=== PATIENT | female | born 1960 | race Caucasian/White ===

== ENCOUNTER 2020-05-16 09:39 | Outpatient (CLI) | payer BC, SELFPAY ==
--- NOTE | ~2020-05-16 | XR_ITS ---
EXAMINATION: XR lg joint inject/asp w image DATE: 05/16/2020 10:34 INDICATION: Left hip osteoarthritis. TECHNIQUE: A time-out was performed to verify the patient's name, date of , and procedure to b e performed. The procedure including the risks, benefits, and alternatives was discussed with the pat ient. Risks discussed included bleeding and infection. The patient understood the risks and agreed to proceed. The skin overlying the left hip joint was prepped and draped in usual sterile fashion. An esthetic was administered with 1% lidocaine subcutaneously. A 22 G needle was advanced under fluoros copic guidance into the joint. Injection of 1 mL of Omnipaque 240 confirmed intra-articular position of the needle. Subsequently, injectate consisting of 3 mL 1% lidocaine and 2 mL 10 mL/mL Kenalog wa s instilled. The needle was removed and the entry site was cleaned and dressed. There were no immed iate complications. Fluoroscopy exposure time was 0.1 minutes. The total number of images was 2. FINDINGS: Real-time fluoroscopy demonstrates the needle in the left hip joint. Patient's pain prior t o procedure:06/01. Patient's pain following the procedure: 06/29. IMPRESSION: 1. Fluoroscopy guided left hip joint injection of local anesthetic and steroid . Reviewed, dictated and finalized at location A. SHOOTER
== END 2020-05-16 09:40 | disposition home or self-care (01) ==
PROVIDERS: PCP Family Medicine; Visit Provider Orthopaedic Surgery
DX: M16.0 Bilateral primary osteoarthritis of hip (principal)
CPT/HCPCS: 20610; 77002; J3301; Q9966

== ENCOUNTER 2023-08-07 09:48 | Outpatient (CLI) | payer OTHER, SELFPAY ==
[2023-08-07 10:30] LABS: CRP < 0.5 mg/dL (<1.0); Uric Acid 7.4 mg/dL (2.5-7.5)
[2023-08-07 10:31] LABS: Rheumatoid Factor < 12.0 IU/ML (<12)
[2023-08-07 10:38] LABS: Erythrocyte Sedimentation Rate 15 mm/hr (0-20)
[2023-08-08 21:28] LABS: HLA B27 NEGATIVE (NEGATIVE)
== END 2023-08-07 09:49 | disposition home or self-care (01) ==
LOC: ANHLAB 09:55
PROVIDERS: PCP Family Medicine; Visit Provider Podiatrist Foot & Ankle Surgery
DX: M10.9 Gout, unspecified (principal); M06.9 Rheumatoid arthritis, unspecified; M32.9 Systemic lupus erythematosus, unspecified
CPT/HCPCS: 36415; 84550; 85652; 86038; 86140; 86430; 86812

== ENCOUNTER 2024-09-24 08:51 | Emergency (ER) | payer OTHER, SELFPAY ==
--- NOTE | ~2024-09-24 | CT_ITS ---
EXAMINATION: CT cervical spine wo con DATE: 09/24/2024 09:16 INDICATION: Status post fall. TECHNIQUE: Computed tomography (CT) of the cervical spine was performed without intravenous contrast. The dose-length product was 366 mGy-cm. Automated exposure control and iterative reconstruction tech [email or web address] were employed. COMPARISON: CT dated 04/03/2016 FINDINGS: There is straightening of cervical lordosis. Craniovertebral junction within normal limits. Odontoid process is normal. There is disc narrowing at C5-6, C6-7 and C7-T1. There is degenerative a nterolisthesis at C3-4, C4-5 and retrolisthesis at C5-6. Lung apices are normal. No evidence for perc hed facet. Spinous processes are normal. Odontoid process is normal. There is multilevel uncinate and facet hypertrophy. No significant paraspinal soft tissue abnormality. IMPRESSION: 1. No acute abnormality of the cervical spine. 2: Severe cervical spondylosis. Reviewed, dictated and finalized at location A.
--- NOTE | ~2024-09-24 | CT_ITS ---
EXAMINATION: CT BRAIN W/O DATE: 09/24/2024 09:16 INDICATION: Status post fall. Head trauma. TECHNIQUE: Computed tomography (CT) of the head was performed without intravenous contrast. The dose- length product was 605.33 mGy-cm. Automated exposure control and iterative reconstruction technique w ere employed. COMPARISON: No prior studies for comparison. FINDINGS: Normal brain parenchymal volume for age. Normal grigsby-white differentiation. No acute intrac ranial hemorrhage, infarction, mass or mass effect. No ventriculomegaly or midline shift. Midline sagittal images demonstrate a normal corpus callosum, c raniovertebral junction and sella turcica. Basilar cisterns are patent. Paranasal sinuses and mastoids are pneumatized. No depressed skull fractures. IMPRESSION: 1. No acute intracranial abnormality. Reviewed, dictated and finalized at location A.
[2024-09-24 08:59] VITALS: BP 140/68; PULSE 65; RESP 14; TEMP 36.4; O2SAT 100
--- OUTSIDE RECORDS SUMMARY | 2024-09-24 09:12 | XMS_ITS | CONTINUITY OF CARE DOCUMENT ---
Author Name dain gautam Address Unknown Organization [facility] Office Address [address] [place] [address] Phone [phone] Care Team Providers Care Custom Frame Assembler Name Role Phone Lj GALVAN, Jun Unavailable [phone] ADELAIDE LOONEY MD Unavailable [phone] ADELAIDE LOONEY MD Unavailable PROBLEMS Condition Status Date Provider Notes Family History of CVA or Stroke: active ? Abimael Calhoun MD Family History of Hypertension: active ? 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 active Jun Calhoun MD HTN essential active Jun Calhoun MD Abnormal EKG active Jun Calhoun MD Shortness of breath active Jun Calhoun MD ENCOUNTERS Date Type Provider Location Encounter Diag nosis - In-person encounter Office Visit Jun Calhoun MD [facility] Family History of CVA or Stroke:Family History of Hypertension:Family History of Hypertension:Preoperativ e cardiovascular examination for colovescical fistula repairHTN essentialAbnormal EKGShortness of breath VITAL SIGNS Date Observation Value Provider Body Mass Index (Ratio) 31.07 kg/m2 Soham Calhoun MD blood pressure, diastolic 72 mm[Hg] Da jorge luis Dick blood pressure, systolic 142 mm[Hg] Dac ia Dick oxygen saturation, oximetry 96 % Josefa Dick respiratory rate E&M 16 /min Josefa V oss pulse rate 66 /min Josefa Dick weight E&M 181 [lb_av] Josefa Dick height E&M 64 [in_i] Josefa Jennings ALLERGIES Allergy Name Onset Date Reaction Criticality Status PENICILLIN High Criticality active HISTORY OF MEDICATION USE Medication Status Instructions Dates Provider Indications Com ments CVS STOOL SOFTENER CAPSULE active take once daily Josefa Dick LISINOPRIL 5 MG ORAL TABLET active take once daily Josefa Dick SYNTHROID 100 MCG ORAL TABLET active take one daily Josefa Dick EC-NAPROSYN 500 MG ORAL TABLET DELAYED RELEASE active take one twice daily Josefa Dick AMBIEN 10 MG ORAL TABLET active take one at bedtime Josefajose manuel Jennings HYDROCODONE-ACETA MINOPHEN 5-325 MG ORAL TABLET active take 1 as needed for pain Josefa Jennings SOCIAL HISTORY Date Observation Value Provider number of grandchildren Jun Calhoun MD T cindy Calhoun MD social history reviewed E&M reviewed - no changes required Jun Calhoun MD FAMILY HISTORY Family Member Condition Mother Family History of Hy pertension: Father Family History of Hy pertension: Father Family History of CV A or Stroke: INSURANCE PROVIDERS Payer name Policy type / Coverage type [place] [employer] party ID [facility] [id number] ADVANCE DIRECTIVES Name Date DISCUSSED - NO DECISION MADE TREATMENT PLAN Date Name Performer Cardiology New Patient Jun cisneros MD Cardiology New Patient Jun cisneros MD Cardiology New Patient Jun cisneros MD Date Name STR - Adenosine HISTORY OF PROCEDURES Procedure Date Procedure Name Provider Procedure Notes S tatus Regadenoson, 4 units Jun Calhoun MD completed Cardiolite, 2 units Jun Calhoun MD completed SPECT Images Jun Calhoun MD complet ed Stress EKG Adam Laogs MD complete d EKG Jun Calhoun MD completed
--- OUTSIDE RECORDS SUMMARY | 2024-09-24 09:12 | XMS_ITS | Clinical Summary ---
Author Organization [facility] Address [address] [place] [address] Phone Care Team Providers Care Client Care Consultant Name Role Phone Ashley Morrison MD Primary Care Provider [phone] Allergies Active Allergy Reactions Criticality Noted Date Comments Atorvastatin Other (See Comments) Medium 02/24/2014 Leg cramps Penicillins Rash Low 08/20/2013 Medications levothyroxine 100 mcg Oral tablet Take 100 mcg by mouth daily cash person. Active zolpidem (AMBIEN) 10 mg tablet Take 10 mg by mouth nightly as needed for Insomnia. Active aspirin (ECOTRIN EC) 81 mg Tablet, Delayed Release (E.C.) Take 1 Tab by mouth daily. 01/21/2014 Active sertraline (ZOLOFT) 25 mg tablet Take 25 mg by mouth daily. Active torsemide (DEMADEX) 10 mg Tablet 10 mg. prn 12/15/2013 Active naproxen (NAPROSYN) 250 mg tablet Take 250 mg by mouth daily. Active Active Problems Problem Noted Date Diagnosed Date Statin intolerance 02/26/2014 History of transient ischemic attack (TIA) 01/20 Hypothyroidism, acquired 01/20/2014 Resolved Problems Problem Noted Date Diagnosed Date Resolved Date Insomnia 01/20/2014 03/19/2023 Immunizations Immunization Administration Dates Next Due INFLUENZA VACCINE QUADRIVALENT 3 YR UP PF IM 04/2013 INFLUENZA VACCINE QUADRIVALENT 6 MOS UP PF IM Pneumococcal conjugate, unspecified formulation 01/20/2013 Family History Medical History Relation Name Comments Thyroid Disease Brother Diabetes Father Heart Disease Father Hypertension Father Breast Cancer Neg Hx Colon Cancer Neg Hx Ovarian Cancer Neg Hx Relation Name Status Comments Brother Father Social History Tobacco Use Types Packs/Day Years Used Date Smoking Tobacco: Never Passive Smoke Exposure: Never Smokeless Tobacco: Never Tobacco Cessation:Counseling Given: Not Answered Alcohol Use Standard Drinks/Week Comments No 0 (1 standard drink = 0.6 oz pur e alcohol) Comments No Sex and Gender Information Value Date Recorded Sex Assigned at Not on file Legal Sex Female 2:00 PM CDT Gender Identity Not on file Sexual Orientation Not on file Occupation Industry Job Start Date Job End Date Not on file Not on file Not on file Not on file Last Filed Vital Signs Vital Sign Reading Time Taken Comments Blood Pressure 128/78 02/24/2014 2:42 PM [employer]ISH [employer] Pulse 62 02/24/2014 2:42 PM [employer] Temperature 36.7 C (98 F) 01/22/2014 5:13 AM CDT Respiratory Rate 16 01/22/2014 5:13 AM CDT Oxygen Saturation 98% 02/24/2014 2:42 PM [employer] Inhaled Oxygen Concentration - - Weight 78.9 kg (174 lb) 02/24/2014 2:42 PM [employer] Height 165.1 cm (5' 5) 02/24/2014 2:42 PM [employer] Body Mass Index 28.96 02/24/2014 2:42 PM [employer]ARNISH [employer] Plan of Treatment Health Maintenance Due Date Last Done Comments DTAP/TDAP/TD VACCINES (1 - Tdap) 01/29/1979 HPV/Cotest (21-29) 01/29/1981 CERVICAL CANCER SCREENING 01/29/1990 HPV/Cotest (30-65) 01/29/1990 PAP SMEAR 01/29/1990 BREAST CANCER SCREENING 2000 COLORECTAL SCREENING 01/29/2005 Colorectal Cancer Screening 01/29/2005 FIT-DNA Q 3 years 01/29/2005 FIT/FOBT Q 1 year 01/29/2005 Flex Sig/CT Colonography Q 5 years 01/29/2005 ZOSTER VACCINE (1 of 2) 01/29/2010 INFLUENZA VACCINE (#1) 2023 02/20/2018, 2013 RSV VACCINE (60+ or ) (1 - 1-dose 75+ series) 01/29/2035 Insurance [facility] BLUE ACCESS CHOICE Advance Directives For more information, please contact: [phone] * Full Code (Latest Code Status on File) Date Activated Date Inactivated Comments 01/20/2014 2:05 PM 01/22/2014 2:20 PM * Full Code Date Activated Date Inactivated Comments 01/20/2014 9:24 AM 01/20/2014 2:05 PM Care Teams Client Care Consultant Relationship Specialty Start Date End Date Ashley Morrison MD [address] [facility] [address] [place] [address] PCP - General 04/08/15
--- OUTSIDE RECORDS SUMMARY | 2024-09-24 09:12 | XMS_ITS | Data Portability ---
Author Organization [place] [facility], Main Office Address [address] [place] [address] Care Team Providers Care Blood Tester Fowl Name Role Phone VINOD GEORGE Primary Care Provider [phone] VINOD GEORGE Referring Provider DEEDEE DELA CRUZ Intelligence Clerk Unavailab le Assessment Encounter Date Assessment Date Assessment LastModified by Organization Details LastModified Time 11/15/2022 11/15/2022 Patient has mode rate primary osteoarthritis of the right knee joint. We talked about treatment options she wants to try a round of gel shots but we have to get these approved in the meantime we could try 1 more shot of cortisone today she will continue with diclofenac. We talked about oral prednisone she states she has a reaction to this it makes her feel ill and she would like to avoid that. Under sterile conditions at her request I injected the patient's right knee joint in the office with 4 cc 0.5% ropivacaine and 20 mg of Kenalog. Patient tolerated procedure well. I will see her back in 6 weeks, if necessary we will proceed with viscosupplementation injection right knee. She voiced understanding agrees above plan she will call for any further problems difficulties or questions. Not available 11/15/2022 09:15:22 12/27/2022 12/27/2022 Patient has mode rate primary osteoarthritis right knee joint. We talked about treatment options previously and again today as described. Under sterile conditions I injected the patient's right knee joint in the office with Euflexxa injection number 1. I will see her back next week for the 2nd injection right knee. She voiced understanding agrees above plan she will call for any further problems difficulties or questions. Not available 12/27/2022 15:57:12 01/03/2023 01/03/2023 Patient has low back pain with right sacroiliac pain. She want to try a shot of cortisone therefore under sterile conditions I injected the patient's right sacroiliac bursa in the office with 4 cc 0.5% ropivacaine and 20 mg of Kenalog. Patient tolerated the procedure well. If her symptoms worsen or change she is instructed to call if symptoms persist we could get an MRI scan we will see how she does with the shot. I will see her back in 1 week for Euflexxa injection number 3 right knee. Today under sterile conditions I injected the patient's right knee joint in the office with Euflexxa injection 2. To treat her moderately advanced primary osteoarthritis right knee. She voiced understanding and agrees above plan she will call for any further problems difficulties or questions. She was also prescribed meloxicam 15 mg daily she will stop the other anti-inflammatories see if this helps. Not available 01/03/2023 14:35:01 01/10/2023 01/10/2023 The patient has moderate primary osteoarthritis of the right knee joint she could have some meniscal pathology patient wanted to try a course of gel shots before we jump to an MRI scan. She is awaiting insurance changes in the near future. Under sterile conditions I injected the patient's right knee joint in the office with Euflexxa injection 3. The patient tolerated the procedure well. I will see her back in a month if her symptoms continue to be significant we will see if we can get an MRI scan approved. She voiced understanding agrees above plan she will call for any further problems difficulties or questions. Not available 01/10/2023 15:39:37 04/24/2023 04/24/2023 The patient has pain in the right sacroiliac region chronic in nature she has recurrence of her pain she would like another shot of cortisone therefore under sterile conditions I injected the patient's right sacroiliac bursa in the office today with 4 cc 0.5% bupivacaine and 20 mg of Kenalog. Patient tolerated procedure well. She will get a refill on her diclofenac to help with the pain hopefully this will calm down for her. She voiced understanding agrees above plan. This has worked well for her in the past. As far as the patient's right shoulder ago she has impingement with rotator cuff tendinitis I do not see any evidence of tearing today although she could have chronic impingement causing partial thickness tearing. We talked about this in detail today for now she would like to try a shot of cortisone she declined formal therapy. Under sterile conditions I injected the patient's right shoulder subacromial space in the office with 4 cc 0.5% bupivacaine and 20 mg of Kenalog. Patient tolerated the procedure well. She was given a refill of her diclofenac as well I will see her back in 6 weeks to see what impact treatment has had if her symptoms continue we will get an MRI scan is shoulder she voiced understanding agrees above plan she will call for any further problems difficulties or questions. Not available 04/24/2023 10:12:30 Plan of Treatment Reminders Order Date Submit Date Provider Last Modified By Organization Details Last Modified Time Details Appointments None recorded. Lab None recorded. Referral None recorded. Procedures injection/a spiration joint/bursa (PROC) 2023 024 [email or web address] In-Office Order, Internal Use Only DO Not Attach Compendium DO Not Attach Compendium, Do Not Delete/merge, [id number] 09:49:42 injection/a spiration joint/bursa (PROC) - in office procedure, administere d by provider 2023 024 In-Office Order, Internal Use Only DO Not Attach Compendium DO Not Attach Compendium, Do Not Delete/merge, [id number] 4 09:30:24 knee aspiration/ injection (PROC) 2022 023 [email or web address] In-Office Order, Internal Use Only DO Not Attach Compendium DO Not Attach Compendium, Do Not Delete/merge, [id number] 3 15:23:55 knee aspiration/ injection (PROC) 2022 023 [email or web address] In-Office Order, Internal Use Only DO Not Attach Compendium DO Not Attach Compendium, Do Not Delete/merge, [id number] 14:20:20 injection/a spiration joint/bursa (PROC) - in office procedure, administere d by provider 2022 023 [email or web address] In-Office Order, Internal Use Only DO Not Attach Compendium DO Not Attach Compendium, Do Not Delete/merge, [id number] 3 14:25:48 knee aspiration/ injection (PROC) 2022 023 [email or web address] In-Office Order, Internal Use Only DO Not Attach Compendium DO Not Attach Compendium, Do Not Delete/merge, [id number] 3 15:28:01 injection/a spiration joint/bursa (PROC) - in office procedure, administere d by provider 2022 023 [email or web address] In-Office Order, Internal Use Only DO Not Attach Compendium DO Not Attach Compendium, Do Not Delete/merge, 3 09:07:16 Surgeries None recorded. Imaging XR, shoulder 2023 024 [email or web address] [facility], [facility], [place], [address], 4 10:26:12 Medication Orders diclofenac sodium 75 mg tablet,fidel yed release 2023 024 [facility] [address], [place], [id number], 4 13:02:29 bupivacaine HCl 0.5 % (5 mg/mL) injection solution 2023 024 [place] [address] [facility], [address], [place], [id number], 4 13:02:29 Kenalog 10 mg/mL suspension for injection 2023 024 [place] [address] [facility], [address], [place], [id number], 4 13:02:29 Kenalog 10 mg/mL suspension for injection [address] [facility]01891, [address], [place], [id number], 4 09:32:48 bupivacaine HCl 0.5 % (5 mg/mL) injection solution [address] [facility]49274, [address], [id number], 4 09:32:48 Euflexxa 10 mg/mL (mw 2.4-3.6 million) intra-artic ular syringe [address]2510, [address] [place] [address], [address], 3 15:40:32 Euflexxa 10 mg/mL (mw 2.4-3.6 million) intra-artic ular syringe 2022 023 [place] [address] [facility], [address] [place], [address], 3 14:41:15 Kenalog 10 mg/mL suspension for injection [address]/[facility] #2510, [address] [place], [address], 3 14:41:15 ropivacaine (PF) 5 mg/mL (0.5 %) injection solution [address]2510, [address] [place], [address], 3 14:41:15 meloxicam 15 mg tablet [address] [facility]22226, [address], [place], [id number], 3 14:41:15 Euflexxa 10 mg/mL (mw 2.4-3.6 million) intra-artic ular syringe 2022 023 [email or web address] [facility]acy #2510, [address] [place], [address], 3 15:51:33 Kenalog 10 mg/mL suspension for injection [address] #2510, [address] [place], [address], 3 09:26:34 ropivacaine (PF) 5 mg/mL (0.5 %) injection solution [address]/[facility] #2510, [address] [place], [address], 3 09:26:34 Patient TargetsNo targets recorded. Patient Instructions Encounter Date Encounter Id Patient Instructions Last Modified By Organization Details Last Modified Time 11/15/2022 [id number] viscosupplementa tion treatment* [email or web address] Not available 12/04/2022 17:23:01 Reason for Referral None Reported. Results Created Date Observation Date Name Description Value Unit Range Abnormal Flag Note LastModifiedBy Organization Detail LastModifiedTime 04/24/19 24 XR, shoul margret No observ ation record ed. [email or web address] [facility] [address], [place], [address], 04/24/2023 10:08:26 Result Notes None recorded. 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 Active 2016 Not Available [facility] 3 07:43:50 Constipat ion 18244542 Completed 201602/04/2018 Not Available [facility] 3 07:43:50 Acute sinusitis 69528758 Completed Not Available [facility] 3 07:43:50 History of transient ischemic attack 698510025 Active 2016 Not Available [facility] 3 07:43:50 Gouty arthropat hy 461880497 Active 2020 Not Available [facility] 3 07:43:50 Persisten t insomnia 571729006 Active 2017 Not Available [facility] 3 07:43:50 Insomnia 469094549 Active Not Available [facility] 3 07:43:50 Chronic interstit ial cystitis 795820034 Active 2017 Not Available [facility] 3 07:43:51 Microscop ic hematuria 020179810 Active Not Available [facility] 3 07:43:51 Pain of joint of hand Active Not Available [facility] 3 07:43:51 Plantar fasciitis Active Not Available [facility] 3 07:43:51 Abdominal pain 17893733 Completed Not Available [facility] 3 07:43:51 Idiopathi c periphera l neuropath y 18943020 Active 2018 Not Available [facility] 3 07:43:51 Mixed anxiety and depressiv e disorder 735825350 Active 2017 Not Available [facility] 3 07:43:51 Overweigh t 142794333 Active Not Available [facility] 3 07:43:51 Ventricul ar tachycard ia 68810107 Active Not Available [facility] 3 07:43:51 Transient cerebral ischemia 712133052 Completed Not Available [facility] 3 07:43:51 Edema 109912025 Active Not Available [facility] 3 07:43:51 Right sided abdominal pain 081789397 Completed 201602/03/2018 Not Available [facility] 3 07:43:51 Lymphaden opathy 09393158 Completed Not Available [facility] 3 07:43:51 Osteopeni a 787569278 Active 2018 Not Available [facility] 3 07:43:51 Pain in finger of left hand 98365146048 9105 Active 2022 Not Available [facility] 3 07:43:51 Pain of left hand 96585845172 9103 Active 2022 Not Available [facility] 3 07:43:52 Vaginal dryness 34765903 Completed 201602/03/2018 Not Available [facility] 3 07:43:52 Blood in urine 81078940 Completed Not Available [facility] 3 07:43:52 Graves' disease 614750805 Active Not Available [facility] 3 07:43:52 Depressiv e disorder 35939927 Active Not Available [facility] 3 07:43:52 Polyarthr opathy 90272772 Active 2018 Not Available [facility] 3 07:43:52 Seasonal allergic rhinitis 193667363 Active 2020 Not Available [facility] 3 07:43:52 Sinusitis 33208458 Completed Not Available [facility] 3 07:43:52 Hypertens cha disorder 33837402 Active 2017 Not Available [facility] 3 07:43:52 Osteoarth ritis 368112642 Active Not Available [facility] 3 07:43:52 Diverticu lar disease 408731876 Active Not Available [facility] 3 07:43:53 Hypothyro idism 97510713 Active Not Available [facility] 3 07:43:53 Ventral incisiona l hernia 134898957 Active 2018 Not Available [facility] 3 07:43:53 Obesity 497500389 Active 2017 Not Available [facility] 3 07:43:53 Acute urinary tract infection 931890135 Completed Not Available [facility] 3 07:43:53 Hypokalem ia 28804312 Active Not Available [facility] 3 07:43:53 Unintenti onal weight gain 35147766356 4104 Completed Not Available [facility] 3 07:43:53 Dermatoph ytosis 00859019 Active Not Available [facility] 3 07:43:53 Anxiety 16710817 Active Not Available [facility] 3 07:43:53 Pain of hip region 46456447 Active Not Available [facility] 3 07:43:53 Cough 44807285 Completed Not Available [facility] 3 07:43:54 Upper respirato ry infection 19476984 Completed Not Available [facility] 3 07:43:54 Vitamin B12 deficienc y (non anemic) 23712342 Active 2017 Not Available [facility] 3 07:43:54 Urinary tract infectiou s disease 66400543 Completed Not Available [facility] 3 07:43:54 Obstructi ve sleep apnea syndrome 16654039 Active 2017 Not Available [facility] 3 07:43:54 Chronic idiopathi c constipat ion 88162840 Active 2016 Not Available [facility] 3 07:43:54 Conjuncti vitis 2364403 Completed Not Available [facility] 3 07:43:54 Pain of left knee joint 22810934158 4107 Active 2022 OENIL Quiroga, [place] [facility] 3 13:52:48 Tear of lateral meniscus of knee 548152991 Active 2022 Azam Flores MD [address] [place] [address], [address] , [place] [facility] 3 14:11:30 Pain of right knee joint 01559685619 4100 Active 2022 MAIRA ValentinA null, [place] [facility] 3 09:43:45 Pain in right sacroilia c joint 60122619452 069898 Active 2022 Cheryl Lange CNA null, [place] [facility] 3 10:04:39 Lumbar spondylos is 755803360 Active 2022 SABIHA Felix [address], [place], [address] , [facility] [employer] [facility] 3 10:31:55 Osteoarth ritis of right knee joint 66906377493 9100 Active 2022 SABIHA Felix [address], [place], [address] , [facility] [employer] [facility] [employer] [facility] 3 10:32:07 Chondroca lcinosis of joint of right knee 67264227017 58173 Active 2022 SABIHA Felix [address], [place], [address] , [facility] [employer] [facility] [employer] [facility] 3 10:32:16 Derangeme nt of right knee 07116633622 485302 Active 2022 SABIHA Felix [address], [place], [address] , [facility] [employer] [facility] [employer] [facility] 3 15:39:48 Pain of right shoulder joint 80624783850 199627 Active 2023 Marilynn Silva RMA null, [facility] 4 09:26:57 Sciatica 87887399 Active 2023 Abby Olivera, ETIENNE null, [facility] 4 09:42:48 Tendiniti s of right rotator cuff 15125920043 678697 Active 2023 SABIHA Felix [address], [place], [address] , [facility] [employer] [facility] 4 10:12:51 Impingeme nt syndrome of right shoulder region 41426850541 9102 Active 2023 SABIHA Felix [address], [place], [address] , [facility] [employer] [facility] 4 10:13:01 Problem Notes None recorded. Procedures Surgical History Date Name Laterality Status Provider Name and Address Organization Details Recorded Time 08/29/19 23 Ortho - Cortisone Injection completed Azam Flores MD [address], [place], [address], [facility] [employer] [facility] 08/28/2022 14:09:27 Gallbladder Surgery completed Not Available [facility] 06/20/2022 07:41:21 [facility]sterectomy completed [facility] Available [facility] 07:41:21 section completed Not Available [facility] 06/20/2022 07:41:21 Imaging Results None recorded. Procedure Notes None recorded. Medical Equipment None Reported. Allergies Allergen ID Allergen Name Allergen Category Reaction Reaction Severity Criticality Documentation Date Start Date Code Code System Note Provider Name and Address Organization Details Recorded Time Product containin g penicilli n (product) medicatio n rash Not available Not available 06/20/2022 [address]79 [address] [facility] 3 07:47:06 56299 Flagyl medicatio n hives Not available Not available 06/20/20222013 65[address] [facility] 3 07:47:07 Medications Name Sig Start Date Stop Date Status Note LastModified by Organization Details LastModified Time cetirizin e 5 mg-pseudo ephedrine ER 120 mg tablet,ex tended release,1 2hr Take 1 tablet every 12 hours by oral route as needed for 7 days. 08/16 completed Not Available Not Available Not Available cyclobenz aprine 10 mg tablet TK 1 T PO Q 12 H FOR 15 DAYS PRN active Not Available Not Available No t Available promethaz ine-DM 6.25 mg-15 mg/5 mL oral syrup TAKE 2.5 ML BY MOUTH EVERY 4 HOURS NEEDED FOR COUGH active Not Available Not Available No t Available prednison e 10 mg tablet active Not Available Not Available Not Available doxycycli ne hyclate 100 mg capsule active Not Available Not Available Not Available naproxen 375 mg tablet 09/08 completed Not Available Not Available Not Available tizanidin e 2 mg tablet Take 1 tablet every 12 hours by oral route as needed for 15 days. active Not Available Not Available No t Available clindamyc in HCl 300 mg capsule TAKE 2 CAPSULES BY MOUTH 1 HOUR BEFORE DENTAL APPOINTM ENT active Not Available Not Available No t Available Normal Saline Flush 0.9 % injection syringe 06/19 completed Not Available Not Available Not Available trazodone 50 mg tablet Take 1 tablet every day by oral route at bedtime for 90 days. active Not Available Not Available No t Available atorvasta tin 10 mg tablet TK 1 T PO QD active stopped taking Not Available Not Available Not Available azithromy ana 250 mg tablet TAKE 4 TABLETS BY MOUTH A SINGLE DOSE active Not Available Not Available No t Available alprazola m 1 mg tablet TK 1 T PO QD 02/04 completed Not Available Not Available Not Available Lidocaine Viscous 2 % mucosal solution MIX WITH EQUAL PARTS OF BENADRYL AND MAALOX AND USE 15ML EVERY 6 HOURS NEEDED active Not Available Not Available No t Available fluconazo le 150 mg tablet TAKE 1 TABLET PO DAILY 01/26 completed Not Available Not Available Not Available benzonata te 200 mg capsule Take 1 capsule 3 times a day by oral route as needed for 10 days. 08/05 completed Not Available Not Available Not Available hydrocodo ne 5 mg-acetam inophen 325 mg tablet TAKE 1 TABLET BY MOUTH TWICE DAILY NEEDED FOR PAIN active Not Available Not Available No t Available Avelox 400 mg tablet active Not Available Not Available Not Available meloxicam 15 mg tablet TAKE 1 TABLET BY MOUTH EVERY DAY active Not Available Not Available No t Available phenazopy ridine 200 mg tablet Take 1 tablet every 8 hours by oral route as needed for 2 days. active Not Available Not Available No t Available cefepime 2 gram solution for injection 02/04 completed Not Available Not Available Not Available ondansetr on HCl 4 mg tablet active Not Available Not Available No t Available bupivacai ne HCl 0.5 % (5 mg/mL) injection solution in office procedur e, administ ered by provider 2023 active Not Available Not Available Not Avai lable prednison e 20 mg tablet TAKE 2 TABLETS BY MOUTH EVERY DAY FOR 5 DAYS active Not Available Not Available No t Available Synthroid 100 mcg tablet TAKE 1 TABLET DAILY EVERY OTHER DAY 30 MINS BEFORE BREAKFAS T. ALTERNAT E WITH THE 112 MCG 06/19 completed Not Available Not Available Not Available Elmiron 100 mg capsule Take 1 capsule 3 times a day by oral route as directed for 30 days. active Not Available Not Available No t Available naproxen 250 mg tablet TAKE 1 TABLET BY MOUTH TWICE DAILY WITH FOOD active Not Available Not Available No t Available phentermi ne 15 mg capsule TAKE 1 CAPSULE BY MOUTH EVERY DAY BEFORE MEALS active Not Available Not Available No t Available torsemide 10 mg tablet TAKE 1 TABLET DAILY active Not Available Not Available No t Available metronida zole 500 mg tablet TK 1 T PO TID 06/19 completed Not Available Not Available Not Available lidocaine HCl 2 % mucosal jelly Take 200 mg by mucous route. 09/02 completed Not Available Not Available Not Available phentermi ne 37.5 mg tablet TAKE 1 TAB BY MOUTH 30 MINUTES BEFORE BREAKFAS T. active Not Available Not Available No t Available prochlorp erazine maleate 10 mg tablet TAKE 1 TABLET BY MOUTH TWICE A DAY NEEDED FOR NAUSEA/V OMITING active Not Available Not Available No t Available allopurin ol 100 mg tablet Take 1 tablet every day by oral route as directed for 90 days. active Not Available Not Available No t Available ciproflox acin 500 mg tablet Take 1 tablet every 12 hours by oral route for 7 days. 02/04 completed Not Available Not Available Not Available sulfameth oxazole 800 mg-trimet hoprim 160 mg tablet TAKE 1 TABLET BY MOUTH EVERY 12 HOURS 03/07 completed Not Available Not Available Not Available aspirin 81 mg tablet,de layed release Take 1 tablet every day by oral route for 90 days. 05/09 completed Not Available Not Available Not Available tramadol 50 mg tablet TK 1 TO 2 TS PO Q 6 H PRN 06/19 completed Not Available Not Available Not Available phentermi ne 30 mg capsule TAKE 1 CAPSULE BY MOUTH EVERY DAY BEFORE MEALS active Not Available Not Available No t Available ketorolac 30 mg/mL (1 mL) injection solution Inject 1 mL every day by intramus cular route as needed for 1 day. 06/20 completed Not Available Not Available Not Available ondansetr on 8 mg disintegr ating tablet 09/02 completed Not Available Not Available Not Available prednison e 10 mg tablets in a dose pack Take 1 tab by mouth, 3 times a day for 3 daysTake 1 tab by mouth 2 times a day for 2 daysTake 1 tab by mouth once a day for 1 day 06/19 completed Not Available Not Available Not Available levothyro xine 88 mcg tablet Take 1 tablet every day by oral route for 90 days. 05/20 completed Not Available Not Available Not Available alprazola m 0.25 mg tablet Take 1 tablet every 12 hours by oral route as needed for 10 days. active Use as needed for the procedur e. Not Available Not Available Not Available potassium chloride ER 20 mEq tablet,ex tended release(p art/cryst ) Take 1 tablet every day by oral route for 30 days. active Not Available Not Available No t Available amitripty line 25 mg tablet active Not Available Not Available No t Available DOK 100 mg capsule TK ONE C PO BID UTD FOR 90 DAYS 05/09 completed Not Available Not Available Not Available Kenalog 10 mg/mL suspensio n for injection in office procedur e, administ ered by provider 2023 active [facility]: [phone] 08-09 Not Available Not Available Not Available amitripty line 10 mg tablet TAKE 1 TABLET NIGHTLY WITH AMBIEN active Not Available Not Available No t Available phenazopy ridine 100 mg tablet TK 1 T PO TID FOR 3 DAYS PRN 06/19 completed Not Available Not Available Not Available benzonata te 100 mg capsule TK 1 C PO BID PRN 11/22 completed Not Available Not Available Not Available cyanocoba dario (vit B-12) 1,000 mcg/mL injection solution Inject 1 mL every month by intramus cular route. 09/02 completed Not Available Not Available Not Available trazodone 150 mg tablet TAKE 1 TABLET BY MOUTH EVERYDAY AT BEDTIME 08/16 completed Not Available Not Available Not Available oseltamiv ir 75 mg capsule TAKE 1 CAPSULE BY MOUTH TWICE A DAY FOR 5 DAYS active Not Available Not Available No t Available nitrofura ntoin macrocrys ivory 100 mg capsule Take 1 capsule every 6 hours by oral route with meals for 7 days. active Not Available Not Available No t Available triamcino lone acetonide 0.1 % topical ointment active Not Available Not Available Not Available clotrimaz ole-betam ethasone 1 %-0.05 % topical cream APPLY TO THE AFFECTED AND SURROUND ING AREAS OF SKIN BY TOPICAL ROUTE 2 TIMES PER DAY IN THE MORNING AND EVENING FOR 2 WEEKS active Not Available Not Available No t Available lisinopri l 10 mg tablet TAKE 1 TABLET (10 MG TOTAL) BY MOUTH EVERY MORNING. active Not Available Not Available No t Available gabapenti n 300 mg capsule Take 1 cap po every 8 hrs as directed . 03/07 completed Not Available Not Available Not Available sertralin e 25 mg tablet Take one tablet daily active Not Available Not Available No t Available diclofena c sodium 75 mg tablet,de layed release TAKE 1 TABLET BY MOUTH TWICE DAILY active Not Available Not Available No t Available hydrocodo ne 5 mg-acetam inophen 500 mg tablet TAKE 1 TABLET BY MOUTH EVERY 6 HOURS NEEDED active Not Available Not Available No t Available zolpidem 5 mg tablet TAKE 1 TABLET BY MOUTH EVERY OTHER DAY active Not Available Not Available No t Available mirtazapi ne 15 mg tablet 06/19 completed Not Available Not Available Not Available gabapenti n 100 mg capsule Take 2 capsules 3 times a day by oral route as directed for 90 days. 02/04 completed Not Available Not Available Not Available polyethyl omid glycol 3350 17 gram/dose oral powder Take 17 g every day by oral route as directed for 90 days. 03/07 completed Not Available Not Available Not Available levofloxa ana 750 mg tablet Take 1 tablet every day by oral route for 10 days. 02/04 completed Not Available Not Available Not Available zolpidem 10 mg tablet TAKE 1 TABLET BY MOUTH AT BEDTIME NEEDED active Not Available Not Available No t Available methylpre dnisolone 4 mg tablets in a dose pack Take 1 dose pk every day by oral route as directed for 6 days. active Not Available Not Available No t Available neomycin 500 mg tablet 06/19 completed Not Available Not Available Not Available hydrocodo ne 10 mg-chlorp heniramin e 8 mg/5 mL oral susp extend.re l 12hr TAKE 5 ML BY MOUTH EVERY 12 HOURS NEEDED FOR 7 DAYS. active Not Available Not Available No t Available cefdinir 300 mg capsule 02/04 completed Not Available Not Available Not Available fluticaso ne propionat e 50 mcg/actua tion nasal spray,domingo pension SHAKE LIQUID AND USE 1 SPRAY IN EACH NOSTRIL DAILY active Not Available Not Available No t Available doxycycli ne hyclate 100 mg tablet Take 1 tablet twice a day by oral route for 10 days. active Not Available Not Available No t Available dicyclomi ne 10 mg capsule active Not Available Not Available Not Available phentermi ne 37.5 mg capsule active Not Available Not Available Not Available naproxen 500 mg tablet TAKE 1 TABLET EVERY 12 HOURS WITH FOOD NEEDED active Not Available Not Available No t Available metoclopr amide 10 mg tablet TK 1 T PO Q 6 H PRF NAUSEA 09/02 completed Not Available Not Available Not Available levothyro xine 112 mcg tablet TAKE 1 TABLET BY MOUTH EVERY MORNING BEFORE BREAKFAS T active Not Available Not Available No t Available tobramyci n 0.3 %-dexamet hasone 0.1 % eye drops,domingo pension INSTILL 2 DROPS INTO AFFECTED EYE(S) FOUR TIMES DAILY UNTIL CLEAR OR MAXIMUM OF 5 DAYS active Not Available Not Available No t Available oxycodone 5 mg tablet 06/19 completed Not Available Not Available Not Available enoxapari n 40 mg/0.4 mL subcutane ous syringe 06/19 completed Not Available Not Available Not Available escitalop chris 10 mg tablet TAKE 1 TABLET BY MOUTH EVERY DAY QAM. active Not Available Not Available No t Available Zyvox 600 mg/300 mL intraveno us piggyback 06/19 completed Not Available Not Available Not Available Vigamox 0.5 % eye drops INSTILL 1 DROP INTO AFFECTED EYE(S) BY OPHTHALM IC ROUTE 3 TIMES PER DAY FOR 7 DAYS active Not Available Not Available No t Available mirtazapi ne 7.5 mg tablet 06/19 completed Not Available Not Available Not Available Wal-itin D 10 mg-240 mg tablet,ex tended release TK 1 T PO D. 06/29 completed Not Available Not Available Not Available nitrofura ntoin monohydra te/macroc rystals 100 mg capsule TK 1 C PO Q 12 H FOR 7 DAYS 04/25 completed Not Available Not Available Not Available Zylet 0.3 %-0.5 % eye drops,domingo pension SHAKE LIQUID AND INSTILL 1 DROP IN RIGHT EYE FOUR TIMES DAILY FOR 7 DAYS active Not Available Not Available No t Available Lyrica 50 mg capsule Take 1 capsule every 12 hours by oral route as directed for 90 days. 02/04 completed Not Available Not Available Not Available diazepam 5 mg-7.5 mg-10 mg rectal kit please set both syringes at 5mg and will administ er in office 06/19 completed Not Available Not Available Not Available Euflexxa 10 mg/mL (mw 2.4-3.6 million) intra-art icular syringe Inject 2.5 mL by intra-ar ticular route for 35 days. 2022 active Not Available Not Available Not Arturotam rauschapril ana 11/22 completed zpack from [employer] Not Available Not Available Not Available lidocaine (PF) 10 mg/mL (1 %) injection solution In office injectio n administ ered by the provider 06/19 completed [facility]: [phone] Not Available Not Available Not Available BD Ultra-Fin e Short Pen Needle 31 gauge x 5/16 USE TO INJECT SAXENDA DAILY DIRECTED active Not Available Not Available No t Available heparin, porcine (PF) 10 unit/mL intraveno us syringe 06/19 completed Not Available Not Available Not Available levocetir izine 5 mg tablet Take 1 tablet every day by oral route as needed for 90 days. active Not Available Not Available No t Available oxycodone 10 mg tablet 06/19 completed Not Available Not Available Not Available diclofena c 1 % topical gel APPLY 2 GRAMS TOPICALL Y TO THE AFFECTED AREA FOUR TIMES DAILY active Not Available Not Available No t Available Suprep Bowel Prep Kit 17.5 gram-3.13 gram-1.6 gram oral solution active Not Available Not Available Not Available ropivacai ne (PF) 5 mg/mL (0.5 %) injection solution Take 20 mg by injectio n route. 2022 active [facility] [id number] Not Available Not Available Not Available Banophen 50 mg capsule TAKE 1 CAPSULE BY MOUTH EVERY 6 HOURS NEEDED FOR ITCHING. active Not Available Not Available No t Available calcium 600 mg (as carbonate )-vitamin D3 20 mcg (800 unit) tablet Take 1 tablet twice a day by oral route for 90 days. 05/09 completed Not Available Not Available Not Available Linzess 145 mcg capsule TAKE ONE CAPSULE BY MOUTH DAILY , 30 MINUTES BEFORE FIRST MEAL 09/02 completed Not Available Not Available Not Available Virtussin AC 10 mg-100 mg/5 mL oral liquid TK 10 ML PO Q 8 H FOR 7 DAYS 04/25 completed Not Available Not Available Not Available Saxenda 3 mg/0.5 mL (18 mg/3 mL) subcutane ous pen injector active Not Available Not Available Not Available Spiriva Respimat 1.25 mcg/actua tion solution for inhalatio n Inhale 2 puffs every day by inhalati on route. 2015 active Dispense Qty: 1. Not Available Not Available Not Available Yuvafem 10 mcg vaginal tablet INSERT 1 TABLET VAGINALL Y 2 TIMES A WEEK as needed active Not Available Not Available No t Available Trulance 3 mg tablet TAKE 1 TABLET BY MOUTH EVERYDAY AT BEDTIME active Not Available Not Available No t Available Xofluza 20 mg tablet Take 2 tablets every day by oral route as directed for 1 day. 08/10 completed Not Available Not Available Not Available Wegovy 2.4 mg/0.75 mL subcutane ous pen injector active Not Available Not Available Not Available Wegovy 1.7 mg/0.75 mL subcutane ous pen injector active Not Available Not Available Not Available Wegovy 1 mg/0.5 mL subcutane ous pen injector INJECT 0.5ML (1MG) SUBCUTAN EOUSLY EVERY 7 DAYS active Not Available Not Available No t Available Wegovy 0.5 mg/0.5 mL subcutane ous pen injector INJECT 0.5 ML (0.5 MG TOTAL) UNDER THE SKIN EVERY 7 DAYS active Not Available Not Available No t Available Vitals Date Recorded Body height Body mass index (BMI) Body weight Provider Name and Address Organization Details Last Updated DateTime 04/24/2023 162.56 cm 34.2 kg/m2 30614.88 g [employer]IL [employer] 04/24/2023 09:24:55 Date Recorded Body height Body mass index (BMI) Body weight Provider Name and Address Organization Details Last Updated DateTime 11/15/2022 162.56 cm 30.9 kg/m2 56094.63 g Rose Arredondo [employer] 11/15/2022 08:55:45 Date Recorded Body height Body mass index (BMI) Body weight Provider Name and Address Organization Details Last Updated DateTime 12/27/2022 162.56 cm 32.6 kg/m2 46474.55 g Cheryl Lange CNA [employer] 12/27/2022 15:26:29 Date Recorded Body height Body mass index (BMI) Body weight Provider Name and Address Organization Details Last Updated DateTime 01/03/2023 162.56 cm 32.1 kg/m2 32499.77 LEANDER Quintana [employer] 01/03/2023 14:19:01 Date Recorded Body height Body mass index (BMI) Body weight Provider Name and Address Organization Details Last Updated DateTime 01/10/2023 162.56 cm 31.9 kg/m2 32383.18 LEANDER Quintana [employer] 01/10/2023 15:22:07 Social History Question Answer Notes LastModified by [employer] Details LastModified Time Tobacco Smoking Status Never Smoker Not Available [facility] 06/20/2022 07:41:19 In The 14 Days Before Symptom Onset, Have You Had Close Contact With A Laboratory-confirm ed COVID-19 While That Case Was Ill? No [id number] Information not available 06/20/2022 In The 14 Days Before Symptom Onset, Have You Had Close Contact With A Person Who Is Under Investigation For COVID-19 While That Person Was Ill? No [id number] Information not available 06/20/2022 Sex: Unknown Functional Status Question Answer Note LastModified by [employer] Details LastModified Time What is your level of alcohol consumption? 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 Family History Relationship Description Onset Age of this Age Resolved Age Notes LastModified by Organization Details LastModified Time Unspecified Relation Diabetes mellitus [id number] Not available 06/20/2022 07:41:23 Unspecified Relation Heart disease [id number] Not available 06/20/2022 07:41:23 Brother Hypertensive disorder [id number] Not available 06/20/2022 07:41:23 Medical History Condition Response BLINDNESS N RHEUMATIC FEVER N KIDNEY STONES N BLADDER PROBLEMS N MRSA N OTHER # 1 N POLIO N LUNG DISEASE/DISORDER N COPD N RADIATION / CHEMOTHERAPY N Other # 2 N BLOOD DISEASES N SURGERY N EAR OR HEARING PROBLEMS N MUMPS N BOWEL PROBLEMS N FEMALE PROBLEMS / INFECTIONS N DEPRESSION (INCLUDING POST ) N STROKE/TIA N THYROID DISEASE N ULCERS N BENIGN PROSTATIC HYPERPLASIA N MEASLES N CERVICALGIA N TB SKIN TEST N MYOCARDIAL INFARCTION N OBESITY N PARAPELGIA N GERD/NAUSEA N ANEURYSM N URINARY/BLADDER/KIDNEY PROBLEMS N CORONARY ARTERY DISEASE (CAD) N MENIERE'S DISEASE N ADDICTION CONCERNS N ENDOMETRIOSIS N USE OF BLOOD THINNERS N SKIN PROBLEMS N EMPHYSEMA N GASTROINTESTINAL DISORDER N MUSCLE,JOINT OR BONE PROBLEMS N GASTROINTESTINAL BLEEDING N BLOOD CLOTS N ASTHMA N CATARACTS N ERECTILE DYSFUNCTION N GI PROBLEMS N CHF N Low Testosterone N NEUROPATHY N INFERTILITY N AIDS/HIV N FRACTURES N CHEMOTHERAPY / RADIATION N VISION/EYE PROBLEMS N LIVER DISEASE N MALE HYPOGONADISM N HYPERTENSION N TOURETTE'S N ANXIETY DISORDER N BLOOD TRANSFUSION N ANEMIA/BLOOD DISORDER N CHRONIC EAR INFECTIONS N BRONCHITIS N TUBERCULOSIS N GLAUCOMA N FOOT PROBLEM N DIVERTICULITIS N CHICKENPOX N SLEEP APNEA N ALLERGIES/HAYFEVER N INFECTIOUS DISEASE N HEART ARRHYTHMIA N PROSTATE N INSOMNIA N HIGH CHOLESTEROL / HYPERLIPIDEMIA N HYPERTHYROIDISM N EYE PROBLEMS N EATING DISORDER N EDEMA N CHRONIC PAIN SYNDROME N CAROTID BLOCKAGE N CONSTIPATION N BACK / NECK PROBLEMS N HAVE YOU BEEN HOSPITALIZED OR SEEN IN [facility] IN THE PAST YEAR ? N ATHEROSCLEROSIS N BREAST PROBLEMS N DIALYSIS N ECZEMA N FIBROMYALGIA N OSTEOPOROSIS N ARTHRITIS Y NO SIGNIFICANT PAST MEDICAL HISTORY N APPENDICITIS N DIABETES, TYPE N BAD TEETH N HEARTBURN / REFLUX N ADD/ADHD N AUTISM SPECTRUM DISORDER (ASD) N HEPATITIS / LIVER DISEASE N PULMONARY DISEASE N GOUT N SLEEP DISORDER N ALZHEIMER'S DISEASE N PAIN N HERPES N DEMENTIA N HEADACHES/MIGRAINES N SEIZURES/EPILEPSY N VASCULAR DISEASE N PACEMAKER N DIZZINESS N HEART DISEASE/HEART PROBLEMS N KIDNEY DISEASE N DEVELOPMENTAL OR BEHAVIORAL DISORDERS N MULTIPLE SCLEROSIS N SCARLET FEVER N MENTAL DISORDER/ILLNESS N CARDIAC ARRHYTHMIA N CANCER: SPECIFY N PNEUMONIA N ATRIAL FIBRILLATION N Gall Stones N PULMONARY EMBOLISM N AUTOIMMUNE DISEASE N Gynecological HistoryNo gynecological history recorded. Obstetrics History GPAL:G 0 P 0 0 0 0 Immunizations Vaccine Type Date Status Note Provider Nam e and Address Organization Details Recorded Time Influenza, split virus, trivalent, preservative [address] [facility] 06/20/2022 07:47:01 Influenza, split virus, trivalent, preservative [address] [facility] 06/20/2022 07:47:01 pneumococcal polysaccharide PPV23 [address] [facility] 06/20/2022 07:47:01 Tdap 3 completed Not Available [facility] 06/20/2022 07:47:02 Influenza, split virus, trivalent, PF 3 completed Not Available [facility] 06/20/2022 07:47:02 Past Encounters Encounter ID Performer Location Encounter Start Date Encounter Closed Date Diagnosis/Indication Diagnosis SNOMED-CT Code Diagnosis ICD10 Code Diagnosis Note [id number] Scott Browne MD [facility] [address] [place] [address] 08/16/2020 00:00:00 08/16/2020 09:46:02 [id number] Scott Browne MD [facility] [address] [facility] [place] [address] 09/09/2020 00:00:00 09/09/2020 11:33:17 [id number] Scott Browne MD [facility] [address] [place], [place] [address] [place] [address] 09/13/2020 00:00:00 09/13/2020 10:08:10 [id number] Scott Browne MD [facility] [address] [facility] [place] [address] 10/11/2020 00:00:00 10/11/2020 17:51:12 [id number] Scott Browne MD [facility] [address] [place] [address] 11/30/2020 00:00:00 11/30/2020 11:47:22 [id number] Scott Browne MD [facility] [address] [place] [address] 12/22/2020 00:00:00 12/22/2020 12:21:08 [id number] Scott Browne MD [facility] [address] [place] [address] 01/20/2021 00:00:00 01/20/2021 13:03:46 [id number] Azam Flores MD [facility] [address] [place] [address] 03/07/2021 00:00:00 03/07/2021 16:18:48 [id number] Azam Flores MD [facility] [address] [place] [address] 06/19/2022 00:00:00 06/19/2022 16:39:10 [id number] Azam Flores MD [facility] [address] [place] [address] 08/28/2022 13:46:22 08/28/2022 14:16:12 Pain of left knee joint [id number] 58229 M25.562 Tear of la teral meniscus of knee 157151064 S83.282A [id number] Azam Flores MD [facility] [address] [place] [address] 09/13/2022 09:39:33 09/13/2022 10:10:45 Tear of lateral meniscus of knee 717001917 S83.282A Pain of ri ght knee joint 7369027827 42505 M25.561 Pain of le ft knee joint 6857094888 57013 M25.562 Pain in ri ght sacroiliac joint 0760439035 3259272 M53.3 Lumbar spondylosis 44836 0009 M47.896 Osteoarthr itis of right knee joint 1903315656 30420 M17.11 Chondrocal cinosis of joint of right knee 5922343702 928784 M11.261 [id number] Azam Flores MD [facility] [address] [place] [address] 11/15/2022 08:52:33 11/15/2022 10:26:47 Pain of right knee joint 3291716866 98642 M25.561 Osteoarthr itis of right knee joint 0877206274 56380 M17.11 Tear of la teral meniscus of knee 573349200 S83.282A Pain of le ft knee joint 3777173956 78724 M25.562 Pain in ri ght sacroiliac joint 7729222636 3900426 M53.3 Lumbar spondylosis 07209 0009 M47.896 Chondrocal cinosis of joint of right knee 0199587877 841653 M11.082 [id number] Azam Flores MD [facility] [address] [place] [address] 12/27/2022 15:23:32 12/27/2022 15:57:24 Osteoarthritis of right knee joint 9781275235 60702 M17.11 Pain of ri ght knee joint 6069747743 43613 M25.163 [id number] Azam Flores MD [facility] [address] [place] [address] 01/03/2023 14:05:12 01/03/2023 15:02:51 Osteoarthritis of right knee joint 5205120712 65013 M17.11 Pain of ri ght knee joint 2936829657 99592 M25.561 Pain in ri ght sacroiliac joint 8765707466 3088153 M53.3 [id number] Azam Flores MD [facility] [address] [place] [address] 01/10/2023 15:18:48 01/10/2023 15:35:48 Osteoarthritis of right knee joint 0917588295 68862 M17.11 Pain of ri ght knee joint 4813043901 33579 M25.561 Derangemen t of right knee 0934935367 7633740 M23.91 [id number] Heron Wright MD [facility] [address] [place] [address] 04/24/2023 09:15:11 04/24/2023 10:26:12 Osteoarthritis of right knee joint 9888594664 25792 M17.11 Pain of ri ght knee joint 4546702663 09339 M25.561 Derangemen t of right knee 7311567271 3662725 M23.91 Pain of ri ght shoulder joint 8376382257 4482750 M25.511 Sciatica 52605934 M54.31 Pain in fi nger of left hand 3492701536 97636 M79.645 Pain in ri ght sacroiliac joint 4427249578 2262752 M53.3 Tendinitis of right rotator cuff 6622858673 3230682 M67.813 Impingemen t syndrome of right shoulder region 1509890835 52552 M75.41 Health Concerns Section Related Observation LastModified by Organization Detai ls LastModified Time None Recorded Concern Status LastModified by Organization Details LastModified Time None Recorded Advance Directives Directive None Recorded Payers Encounter Date Sequence Insurance Name Policy Number Policy Carlson Covered Member ID Carlson Member ID Guarantor Name 11/15/2022 1 [facility] Suhail Espinosa Jo Ann [id number] Cseia Cherry 12/27/2022 1 [facility] Suhail Jesús Jo Ann [id number] Cesia Cherry 01/03/2023 1 [facility] Suhail Espinosa Jo Ann [id number] Cesia Cherry 01/10/2023 1 [facility] Suhail Jesús Jo Ann [id number] Cesia Cherry 04/24/2023 1 [facility] [id number] Suhail Jo Ann [id number] Cesia Cherry Notes Date Note Type Note Provider Name and Address Organization Details Recorded Time 11/15/2022 text/html Patient returns complaining of right knee pain with some mild swelling. She has previous x-rays which show moderate primary osteoarthritis she also has some chondrocalcinosis of the menisci. She states that a shot of cortisone 2 months ago gave her excellent relief. She denies any specific trauma or injury recently or previously. She states that she stands on her feet all day at work this causes aching pain worse with activities and relieved by rest she has trouble squatting kneeling going up and down stairs. she reports crepitation and a fullness in the knee it feels tight with the extremes of motion. Despite taking diclofenac recently her symptoms continue. Patient comes in today with no loss of motion or other mechanical symptoms no erythema heat or other signs of infection. She would like to talk about further treatment options for her right knee pain. She was doing very well until a week or 2 ago now her pain is back to about a 5 on a scale 1-10. SABIHA Felix [address] [facility] [address], [place], [address], [facility] 11/15/2022 09:26:31 12/27/2022 text/html Patient returns for Euflexxa injection number 1 right knee. We have tried cortisone this did not give her good relief. Dr. Flores had recommended an MRI scan of the knee however she declined she does have moderate primary osteoarthritis noted in the right knee had no specific trauma or injury previously. She would like to try conservative measures before she considered an MRI scan or surgical intervention. She he would like to go through a course of gel shots. She is taking diclofenac daily as well. SABIHA Felix [address], [place], [address], [employer] [facility] [employer] 12/27/2022 15:58:49 01/03/2023 text/html patient returns for Euflexxa injection 2. Right knee. She has moderate primary osteoarthritis with chronic aching pain. She is trying to avoid total knee arthroplasty she does have significant osteoarthritis and chondrocalcinosis. She declined an MRI scan Dr. Flores has recommended a course of gel shots.Patient also having low back pain in the right sacroiliac region that radiates into the buttock little bit down the thigh. We talked about treatment options for this in detail previously as well she had a shot of cortisone here and made this gave her excellent relief when she had her right SI joint injected into the bursa. She would like to repeat this today she has had a flare up of her back pain denies any neurovascular deficits no bowel or bladder symptoms no acute trauma or injury. She has recurrent low back pain similar to last August. SABIHA Felix [address], [place], [address], [employer] [facility] [employer] 01/03/2023 14:35:16 01/10/2023 text/html Patient returns for Euflexxa injection number 3 right knee. States she is not getting much relief for the 1st 2 rounds of injections. She has moderate primary osteoarthritis, Dr. Flores had recommended an MRI scan of the knee however she declined she has had some issues with her insurance being switch back and forth she will have permanent good insurance in about a month. In the meantime she wanted to try a course of gel shots recommended by Dr. Flores. She comes in today for the 3rd and final 1. States she is still having significant pain particularly if she is on her feet all day has throbbing and aching that bothers her at night as well. SABIHA Felix [address], [place], [address], [employer] 01/10/2023 15:40:16 04/24/2023 text/html Patient returns complaining of recurrent low back pain the right sacroiliac region also new problem with her right shoulder. Right sacroiliac pain has been there chronically shot of cortisone worked well for her in the past she would like another 1 today. Denies any radicular pain down the leg no numbness or tingling no bowel or bladder symptoms. She states that if she stands for too long of a time this causes significant aching pain in the right sacroiliac region. She has been working more lately this has been bothering her she would like another shot of cortisone today. She also has been taking diclofenac but has run out she would like a refill on this we will get her this for her issues as well.Patient's other problem is a new problem with her right shoulder. Denies any trauma or injury states she has aching pain in the shoulder radiates into the upper arm many years ago she had a shot of cortisone for impingement this worked well for her. She states that if she tries to do anything heavy repetitive her reach up over head or behind her back this causes aching pain it also it is keeping her awake at night. She has trouble with trying to keep her shoulder calm despite conservative measures her symptoms continue. He has had no trauma or injury to the shoulder denies any weakness or loss of motion no stiffness or radicular pain down the arm no numbness or tingling. She comes in today for initial evaluation and treatment. SABIHA Felix [address], [address], [place], [id number], [employer] 04/24/2023 10:13:57 OBGyn Episode No OBEpisode recorded.
--- OUTSIDE RECORDS SUMMARY | 2024-09-24 09:12 | XMS_ITS | Encounter Summary ---
Author Organization [facility] Address [address] [place] [address] Care Team Providers Care Release Of Information Specialist Name Role Phone Ashley Morrison MD Primary Care Provider [phone] Reason for Visit * Reason Onset Date Comments New Patient Request 03/18/2023 Encounter Details Date Type Department Care Team (Late st Contact Info) Description 03/18/2023 Telephone [facility] - [facility], [address] [facility] [address] [address] Isaiah Nevarez MD [address] [facility] [address] [id number] New Patient Request Social History Tobacco Use Types Packs/Day Years [...] file Not on file Not on file documented as of this encounter Miscellaneous Notes * Telephone Encounter - Kari Posada - 03/19/2023 3:00 PM CST Called patient and had to leave a detailed message. 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 Nevarez and they highly recommended him to her. Patient stated that her brother Aydin Rashid and his Majo, their daughter Iris and her Bryant all see Dr. Nevarez. Patient is inquiring if Dr. Nevarez would take her and her Suhail onas new patients. Please call back and advise. Call-back Number: [phone] (home) RUMENT REPAIR TECHNICIAN documented in this encounter Plan of Treatment Not on file documented as of this encounter Visit Diagnoses Not on filedocumented in this encounter Care Teams Release Of Information Specialist Relationship Specialty Start Date End Date Ashley Morrison MD [address] [id number] PCP - General 04/08/15 documented as of this encounter
--- OUTSIDE RECORDS SUMMARY | 2024-09-24 09:13 | XMS_ITS | Referral Summary ---
Author Organization [facility] [address] [facility] Address [address] [place] [address] Care Team Providers Care Hospital Unit Coordinator Name Role Phone Jamey Campbell MD Unavailable Mariann Melara MD, Tuan Martel Primary Care Provide r Encounters Date Type Department Care Team Description 09/04/2024 Telephone [facility] Primary Care [address] [place] [phone] Tuan Waite Jr., MD Test Results 09/03/2024 Orders Only [facility] Primary [facility] [address] [place] [phone] Tuan Waite Jr., MD Primary osteoarthritis involving multiple joints (Primary Dx) 09/02/2024 9:00 AM CDT Lab [facility] Medical Office Building [address] [place] [id number] Controlled drug dependence (HCC) 09/02/2024 8:45 AM CDT - 09/02/2024 11:59 PM CDT Hospital Encounter [facility] 1 DIAG IMG [address] [place] [id number] Strain of tendon of lower back Discharge Disposition: Discharge to home or self care 09/02/2024 8:00 AM CDT Office Visit [facility] Primary [facility] [address] [place] [phone] Tuan Waite Jr., MD Primary hypertension (Primary Dx); Other specified hypothyroidism; Strain of tendon of lower back; Class 2 severe obesity due to excess calories with serious comorbidity and body mass index (BMI) of 35.0 to 35.9 in adult (HCC); Controlled drug dependence (HCC) 08/10/2024 Orders Only [facility] Gastroenterology at [address] [place] [address] Luis Armando Mccoy MD Screening for colon cancer (Primary Dx) 07/01/2024 Telephone [facility] Primary [facility] [address] [facility] [address] [place] [address] Tuan Waite Jr., MD Symptom Based Call 06/24/2024 7:10 AM GOVERNMENT TEACHER Lab [facility] Office Building 1 Lab [facility] [place] [address] Other specified hypothyroidism from Last 3 Months Allergies Active Allergy Reactions Criticality Noted Date Comments Levofloxacin Other (See comments) Low 10/15/2017 tendonitis Metronidazole Hives Medium 05/06/2013 Ondansetron Itching,Swelling Medium 10/05/2021 Penicillins Rash Medium 08/20/2013 Vancomycin Itching Low 02/19/2018 Scalp itching Medications diclofenac sodium (VOLTAREN) 1 % gelIndications:Os teoarthritis of the Knee Apply 2 g topically 4 (four) times a day 100 g 3 023 Active fluticasone propionate (FLONASE) 50 mcg/actuation nasal sprayIndications: Acute non-recurrent maxillary sinusitis Administer 1 spray into each nostril daily 1 each 024 Active lisinopriL (PRINIVIL,ZESTRIL ) 10 mg tabletIndications :hypertension TAKE 1 TABLET (10 MG TOTAL) BY MOUTH EVERY MORNING. 90 tablet 3 024 2024 Active ofloxacin (FLOXIN) 0.3 % otic solutionIndicatio ns:Acute Pseudomonas Aeruginosa Otitis Externa,Acute Staphylococcus Aureus Otitis Externa Administer 5 drops into the right ear 2 (two) times a day 10 mL 024 Active levothyroxine (SYNTHROID) 88 mcg tabletIndications :Other specified hypothyroidism Take 1 tablet (88 mcg total) by mouth daily 90 tablet 4 Active linaCLOtide (LINZESS) 290 mcg capsuleIndication s:Constipation Predominant Irritable Bowel Syndrome,function al constipation Take 1 capsule (290 mcg total) by mouth daily 90 capsule 3 025 2025 Active promethazine-DM (PROMETHAZINE-DM) 1.25-3 mg/mL syrupIndications: Acute non-recurrent maxillary sinusitis TAKE 5 TO 10 ML BY MOUTH EVERY 4 HOURS NEEDED FOR COUGH 120 mL 025 Active HYDROcodone-aceta minophen (NORCO) 5-325 mg per tabletIndications :Pain Take 1 tablet by mouth 2 (two) times a day as needed for pain 60 tablet 025 Active cyclobenzaprine (FLEXERIL) 10 mg tabletIndications :Strain of tendon of lower back Take 1 tablet (10 mg total) by mouth 3 (three) times a day as needed for muscle spasms 30 tablet 025 2024 Active tirzepatide, weight loss, (ZEPBOUND) 10 mg/0.5 mL solution vialIndications:C lass 2 severe obesity due to excess calories with serious comorbidity and body mass index (BMI) of 35.0 to 35.9 in adult ([facility]) Inject 0.5 mL (10 mg total) under the skin every 7 days 2 mL 2 Active lidocaine (LIDODERM) 5 %Indications:Prim zachary osteoarthritis involving multiple joints Place 1 patch on the skin daily for 12 hours Apply to painful area 12 hours per day, remove for 12 hours. 30 patch 3 025 2024 Active triamcinolone (KENALOG) 0.1 % ointment 2024 Discontinued(T herapy completed) amitriptyline (ELAVIL) 25 mg tablet TAKE 1 TABLET(25 MG) BY MOUTH EVERY NIGHT 30 tablet 024 2024 Discontinued(T herapy completed) diclofenac DR (VOLTAREN) 75 mg EC tablet Take 1 tablet (75 mg total) by mouth 2 (two) times a day 180 tablet 3 024 05/14/ 2025 Discontinued(T herapy completed) TIRZEPATIDE SUBQ Inject under the skin once a week Currently at the highest dose 2024 Discontinued aspirin 81 mg chewable tabletIndications :Other constipation Take 1 tablet (81 mg total) by mouth daily 90 tablet 3 024 2024 Discontinued(T herapy completed) diphenhydrAMINE (BENADRYL) 50 mg capsuleIndication s:Acute non-recurrent maxillary sinusitis TAKE 1 CAPSULE BY MOUTH NIGHTLY NEEDED FOR CONGESTION 30 capsule 025 2024 Discontinued(T herapy completed) tirzepatide, weight loss, (ZEPBOUND) 7.5 mg/0.5 mL solution vialIndications:C lass 2 severe obesity due to excess calories with serious comorbidity and body mass index (BMI) of 35.0 to 35.9 in adult (HCC) Inject 0.5 mL (7.5 mg total) under the skin every 7 days 2 mL 025 2024 Discontinued(T herapy completed) Active Problems Problem Noted Date Diagnosed Date Strain of tendon of lower back 09/02/2024 Screening for colon cancer 04/01/2024 Depression, recurrent 10/08/2023 Class 2 severe obesity due t o excess calories with serious comorbidity and body mass index (BMI) of 35.0 to 35.9 in adult 10/08/2023 Assessment & Plan (09/02/2024 8:47 AM CDT): Had BMI of 35, lost 40 lbs on zepbound from compounding Will get her the prescription from the company-actually cheaper and with new FDA ruling will no longer be able to get from compounding Chronic pain of multiple joints 08/28/2022 Preventative health care 02/19/2022 Assessment & Plan (03/04/2024 10:57 AM GOVERNMENT TEACHER): Reviewed labs, screenings and vaccines Assessment & Plan (03/06/2023 7:21 AM GOVERNMENT TEACHER): Reviewed labs, screenings and vaccines Assessment & Plan (02/19/2022 4:27 PM CDT): neds updated labs S/P exploratory laparotomy 05/17/2021 Primary insomnia 02/16/2021 Assessment & Plan (03/06/2023 7:22 AM GOVERNMENT TEACHER): Chronic stable Well controlled Continue current prescribed medications at current dose Assessment & Plan (10/03/2021 9:25 AM CDT): Last took ambien before her trip, was doing 5 mg every other day Has been feeling her symptoms since return Could be traveleris diarrhea vs wegovy vs withdrawal After she mentioned stopping the ambien for 3 weeks I am more inclined to think it related to withdrawal from that however we will treat for travelers diarrhea She actually reports sleeping fine Assessment & Plan (02/16/2021 4:43 PM CDT): Has been on ambien for 30 years Wants to come off after out discussion Will cut in half to 5 mg Other specified hypothyroidism 02/16/2021 Assessment & Plan (09/02/2024 8:46 AM CDT): Chronic stable Well controlled Continue current prescribed medication levo at current dose Assessment & Plan (03/06/2023 7:22 AM GOVERNMENT TEACHER): Chronic stable Well controlled Continue current prescribed medications at current dose Assessment & Plan (02/16/2021 4:43 PM CDT): Will check TSH unusual regime, will re-dose once number return OA (osteoarthritis) of finger, left 02/16/2021 Assessment & Plan (07/18/2021 7:05 AM CDT): Will take hydrocodone prn and then get in with ortho Assessment & Plan (02/16/2021 4:44 PM CDT): Takes naproxen daily Takes hydrocodone prn-once every couple days CAMI (generalized anxiety disorder) 02/16/2021 Assessment & Plan (03/06/2023 7:22 AM GOVERNMENT TEACHER): Chronic stable Well controlled Continue current prescribed medications at current dose Assessment & Plan (02/16/2021 4:45 PM CDT): Took lexarpo, stopped Other constipation 02/16/2021 Assessment & Plan (03/06/2023 7:22 AM GOVERNMENT TEACHER): Chronic stable Well controlled Continue current prescribed medications at current dose Assessment & Plan (02/16/2021 4:45 PM CDT): Take trulance Primary hypertension 02/16/2021 Assessment & Plan (09/02/2024 8:46 AM CDT): Chronic stable Well controlled Continue current prescribed medications at current dose Assessment & Plan (03/04/2024 10:58 AM GOVERNMENT TEACHER): Chronic stable Well controlled Continue current prescribed medications at current dose Assessment & Plan (03/06/2023 7:22 AM GOVERNMENT TEACHER): Chronic stable Well controlled Continue current prescribed medications at current dose Assessment & Plan (02/19/2022 4:32 PM CDT): Continue blood pressure medications Assessment & Plan (02/16/2021 4:56 PM CDT): Continue lisinopril Resolved Problems Problem Noted Date Diagnosed Date Resolved Date Traveler's diarrhea 10/03/2021 03/06/20 23 Assessment & Plan (10/03/2021 8:43 AM CDT): Will try azithromycin one time dose Has been sick since returning form [place] about 3 weeks prior, comes and goes Took zofran after Class 1 obesity due to exces s calories with serious comorbidity and body mass index (BMI) of 30.0 to 30.9 in adult 02/16/2021 03/04/2024 Assessment & Plan (10/08/2023 1:09 PM CDT): Will reach out to about weight loss savings program Assessment & Plan (03/06/2023 7:14 AM GOVERNMENT TEACHER): With HTN Will look into weight loss clinic options Assessment & Plan (02/19/2022 4:27 PM CDT): Wants to try one more month with adipex If this does not work we will consider getting wegovy from third libertarian supplier Assessment & Plan (02/16/2021 4:45 PM CDT): Taking adipex, discussed this, has goal of 150ls, 16 lbs away from this goal Ventral incisional hernia 11/18/2018 Assessment & Plan (02/16/2021 4:56 PM CDT): Monitor Will consider elective procedure in the future Large bowel anastomotic leak 01/17/2018 03/06/2023 Assessment & Plan (03/20/2021 3:35 PM GOVERNMENT TEACHER): History of this with needing surgery for repair High risk for SBO Recommend STAT CT for further evaluation Acute postoperative pain Generalized abdominal pain 1 05/06/2022 Immunizations Immunization Administration Dates Next Due Influenza, Quadrivalent, Spl it, Preservative Free, Intramuscular 02/20/2018,01/20/2014 Influenza, Trivalent, IM (MDV) 01/21/2014,2011 Influenza, Trivalent, Preser vative Free, Intramuscular 03/27/2013 Influenza, Unspecified 03/04/2024(Deferr ed: Patient Refused),03/04/2024(Deferred: Patient Refused),03/06/2023(Deferred: Patient Refused),02/20/2023(Deferred: Patient Refused),02/20/2022(Deferred: Patient Refused),04/10/2016,03/27/2016 Pneumococcal Conjugate, Unspecified 01/20/2013 Pneumococcal Polysaccharide PPV23 01/31/2012 Tdap 03/31/2013 ZOSTER LIVE 04/10/2016,03/27/2016 Social History Tobacco Use Types Packs/Day Years Used Date Smoking Tobacco: Never Smokeless Tobacco: Never Tobacco Cessation:Counseling Given: Not Answered Alcohol Use Standard Drinks/Week Comments No 0 (1 standard drink = 0.6 oz pur e alcohol) AUDIT-C Answer Date Recorded Q1: How often do you have a drink containing alcohol? Never 09/02/2024 Q2: How many drinks containi ng alcohol do you have on a typical day when you are drinking? Patient does not drink Q3: How often do you have si x or more drinks on one occasion? Never 09/02/2024 PHQ-2 Answer Date Recorded PHQ-2 Total Score (If total score is 3 or more points, staff should administer the PHQ-9) 0 03/04/2024 PHQ-9 Answer Date Recorded PHQ-9 Total Score 0 03/04/2024 Comments No Sex and Gender Information Value Date Recorded Sex Assigned at Not on file Legal Sex Female 3:28 AM GOVERNMENT TEACHER Gender Identity Female 03/23/2021 5:45 PM GOVERNMENT TEACHER Sexual Orientation Not on file Last Filed Vital Signs Vital Sign Reading Time Taken Comments Blood Pressure 114/64 09/02/2024 7:55 AM CDT Pulse 70 09/02/2024 7:55 AM CDT Temperature 36.4 C (97.6 F) 09/02/2024 7:55 AM CDT Respiratory Rate 18 03/04/2024 9:42 AM GOVERNMENT TEACHER Oxygen Saturation 98% 09/02/2024 7:55 AM CDT Inhaled Oxygen Concentration - - Weight 73 kg (161 lb) 09/02/2024 7:55 AM CDT Height 162.6 cm (5' 4) 09/02/2024 7:55 AM CDT Body Mass Index 27.64 09/02/2024 7:55 AM CDT Plan of Treatment Not on file Medical Devices Implanted Type Area Image Scientist Device Identifier Shelf Expiration Date Model / Serial / Lot [employer]/C R Bard [id number] Monofilament Soft Lightweight Low Profile Square - [id number] Implanted:Qty: 1 on 05/11/2021 by Disha Gay MD at [facility] Mesh N/A: Abdomen [employer] R Bard [id number] 12/17/2025 [id number] / / [id number] Procedures Procedure Name Priority Date/Time Associated Diagnosis Comments OPIATES CONFIRMATION MS, URINE Routine 09/02/2024 9:09 AM CDT Controlled drug dependence (HCC) DRUGS OF ABUSE SCREEN, URINE WITH REFLEX CONFIRMATION Routine 09/02/2024 9:09 AM CDT Controlled drug dependence (HCC) XR SPINE LUMBAR COMPLETE 4 OR MORE VIEWS Schedule Routine, Read Routine (OP Routine) 09/02/2024 8:57 AM CDT Strain of tendon of lower back T4, FREE Routine 06/24/2024 7:13 AM GOVERNMENT TEACHER Other specified hypothyroidism THYROID FUNCTION CASCADE Routine 06/24/2024 7:13 AM GOVERNMENT TEACHER Other specified hypothyroidism SCREENING MAMMOGRAM BILATERAL W ABRAM Schedule Routine, Read Routine (OP Routine) 03/06/2023 8:08 AM GOVERNMENT TEACHER Preventative health care HEPATITIS C ANTIBODY Routine 02/20/2021 1:37 PM CDT Preventative health care from Last 3 Months or Most Recently Relevant to Health Maintenance Results * (ABNORMAL) Drugs of Abuse Screen, Urine with Reflex Confirmation (09/02/2024 9:09 AM CDT) Amphetamine, ur Not Detected CutOff 500ng/mL Comment: Interpretive Data - Amphetamines: Samples containing greater than 500 ng/mL d-methamphetamine or other cross-reacting amphetamine compounds are reported as positive. Amphetamine immunoassays are subject to significant false positive rates due to cross-reactivity of non-amphetamine drugs. Confirmatory testing required for definitive results. Current Interpretive Data was last reviewed 2022. Testing performed by: [address] [address] Barbiturates, ur Not Detected CutOff 200ng/mL [facility] Comment: Interpretive Data - Barbiturates: Samples containing greater than 200 ng/mL secobarbital or other cross-reacting barbiturate compounds are reported as positive. False positive and false negative results are possible. Confirmatory testing required for definitive results. Current Interpretive Data was last reviewed 2022. Testing performed by: [address] [address] Benzodiazepines, ur Not Detected CutOff 100ng/mL [facility] Comment: Interpretive Data - Benzodiazepines: Samples containing greater than 100 ng/mL nordiazepam or other cross-reacting compounds are reported as positive. False positive and false negative results are possible. Confirmatory testing required for definitive results. Current Interpretive Data was last reviewed 2022. Testing performed by: [facility], [address] [place] [address]., [address] Cannabinoids, ur Not Detected CutOff 50 ng/mL [facility] Comment: Interpretive Data - Cannabinoids: Samples containing greater than 50 ng/mL delta-9 THC -COOH or other cross- reacting compounds are reported as positive. False positive and false negative results are possible. Confirmatory testing required for definitive results. Current Interpretive Data was last reviewed 2022. Testing performed by: [facility], [address] [place] [address], [place]., [address] Cocaine, ur Not Detected CutOff 150ng/mL [facility] Comment: Interpretive Data - Cocaine: Samples containing greater than 150 ng/mL benzoylecgonine or other cross- reacting compounds are reported as positive. False positive and false negative results are possible. Confirmatory testing required for definitive results. Current Interpretive Data was last reviewed 2022. Testing performed by: [address] [address] Fentanyl, Ur Not Detected Cutoff 1 ng/mL [facility] Comment: Interpretive Data - Fentanyl: Samples containing greater than 1 ng/mL fentanyl or other cross-reacting fentanyl compounds are reported as positive. False positive and false negative results are possible. Confirmatory testing required for definitive results. Current Interpretive Data was last reviewed 2022. Testing performed by: [address] [address] Methadone, ur Not Detected CutOff 300ng/mL [facility] Comment: Interpretive Data - Methadone: Samples containing greater than 300 ng/mL d,l-methadone or other cross-reacting compounds are reported as positive. False positive and false negative results are possible. Confirmatory testing required for definitive results. Current Interpretive Data was last reviewed 2022. Testing performed by: [address], [place]., [address] Opiates, ur Screen Positive, presumptive (A) CutOff 300ng/mL [facility] Comment: Interpretive Data - Opiates: Samples containing greater than 300 ng/mL morphine or other cross-reacting compounds are reported as positive. False positive and false negative results are possible. Confirmatory testing required for definitive results. Current Interpretive Data was last reviewed 2022. Testing performed by: [address] [address] Oxycodone, ur Not Detected CutOff 100ng/mL [facility] Comment: Interpretive Data - Oxycodone: Samples containing greater than 100 ng/mL oxycodone or other cross-reacting compounds are reported as positive. False positive and false negative results are possible. Confirmatory testing required for definitive results. Current Interpretive Data was last reviewed 2022. Testing performed by: [address] [address] Phencyclidine, ur Not Detected CutOff 25 ng/mL [facility] Comment: Interpretive Data - Phencyclidine: Samples containing greater than 25 ng/mL phencyclidine or other cross-reacting compounds are reported as positive. False positive and false negative results are possible. Confirmatory testing required for definitive results. Current Interpretive Data was last reviewed 2022. Testing performed by: [address] [address] Urine Creatinine 188 mg/dL [facility] Comment: Interpretive Data Urine Creatinine: < 10 mg/dL is extremely dilute = or > 10 but < 20 mg/dL is dilute = or > 20 mg/dL is normal Current Interpretive Data was last revised on 2017. Testing performed by: [address] [address] Urine 09/02/2024 9:09 AM CDT 09/02/2024 10:44 AM CDT Narrative [facility] - 09/02/2024 11:28 AM CDT Drug of Abuse screening is performed by immunoassay for medical purposes only. This is not to be used for Pain Management purposes. If Detected, confirmation testing will be performed for Amphetamines, Cocaine, Fentanyl, Methadone, Opiates, Oxycodone or Phencyclidine. Tuan Waite Jr., MD LAB URINE ORDERABLES Final Result [facility] [address] [facility] Department [place] [address] * (ABNORMAL) Opiates Confirmation, Urine (09/02/2024 9:09 AM CDT) Codeine Conf, Ur Does Not Confirm CutOff 50 ng/mL Comment:Testing performed by : [facility], [address] [place]., [address] 6- Acetylmorphine Conf, Ur Does Not Confirm CutOff 10 ng/mL [facility] Comment:Testing performed by : [facility], [address] [place]., [address] Hydrocodone Conf, Ur Confirmed Positive(A) CutOff 50 ng/mL [facility] Comment:Testing performed by : [facility], [address] [place]., [address] Morphine Conf, Ur Does Not Confirm CutOff 50 ng/mL [facility] Comment:Testing performed by : [facility], [address] [place]., [address] Hydromorphone Conf, Ur Does Not Confirm CutOff 50 ng/mL [facility] Comment: Interpretive Data This test detects the presence or absence of drug compounds using LC Tandem mass spectrometry and is not intended to assess compliance with prescribed medications. While this test is highly specific, false positive and false negative results may occur in very rare circumstances. Contact the laboratory for consultation, if needed. Performance characteristics were determined by the [facility] in a manner consistent with CLIA requirement and has not been cleared or approved by the U.S. Food and Drug Administration. Current interpretive data was last revised 2020. Testing performed by: [facility], [address] [place]., [address] Urine 09/02/2024 9:09 AM CDT 09/02/2024 3:31 PM CDT Tuan Waite Jr., MD LAB URINE ORDERABLES Final Result [facility] [address] [facility] Department [place] [address] * XR Spine Lumbar Complete 4 Or More (09/02/2024 8:57 AM CDT) Anatomical Region Laterality Modality Spine N/A Computed Radiogr aphy 09/07/2024 2:38 PM CDT Narrative 09/07/2024 2:39 PM CDT EXAM DESCRIPTION: XR SPINE LUMBAR 4 OR MORE VIEWS REASON FOR STUDY: lower back pain Pt states she had right sided low back pain that started 3 weeks ago that recently resolved, left sided low back pain started yesterday radiating into posterior left hip FINDINGS: Five views submitted with comparison 09/06/2022. No acute fracture. Grade 1 anterolisthesis of L3 on L4. Mild L2-L3, moderate L3-L4 and mild L4-L5 degenerative disc disease with severe multilevel lumbar facet osteoarthritis. Right upper quadrant surgical clips are present. Mild dextroscoliosis. IMPRESSION: Mild L2-L3, moderate L3-L4 and mild L4-L5 degenerative disc disease with severe multilevel lumbar facet osteoarthritis. THIS IS AN ELECTRONICALLY VERIFIED FINAL REPORT 09/07/2024 2:39 PM - Electronically signed by Tuan Rodrigez M.D. MF: [id number] Report ID: [id number] Reading Location: [id number] Procedure Note Tuan Rodrigez MD - 09/07/2024 EXAM DESCRIPTION: XR SPINE LUMBAR 4 OR MORE VIEWS REASON FOR STUDY: lower back pain Pt states she had right sided low back pain that started 3 weeks ago that recently resolved, left sided low back pain started yesterday radiatinginto posterior left hip FINDINGS: Five views submitted with comparison 09/06/2022. No acute fracture. Grade 1 anterolisthesis of L3 on L4. Mild L2-L3,moderate L3-L4 and mild L4-L5 degenerative disc disease with severe multilevellumbar facet osteoarthritis. Right upper quadrant surgical clips are present.Mild dextroscoliosis. IMPRESSION: Mild L2-L3, moderate L3-L4 and mild L4-L5 degenerative disc disease with severe multilevel lumbar facet osteoarthritis. THIS IS AN ELECTRONICALLY VERIFIED FINAL REPORT 09/07/2024 2:39 PM - Electronically signed by Tuan Rodrigez M.D. MF: [id number] Report ID: [id number] Reading Location: [place] [address] Tuan Waite Jr., MD IMG XR PROCEDURES Fin al Result * (ABNORMAL) Thyroid Function [place] (06/24/2024 7:13 AM GOVERNMENT TEACHER) TSH 4.64(H) 0.30 - 4.20 mcIUnit/mL Comment:Testing performed by : [address] [address] Blood 06/24/2024 7:13 AM GOVERNMENT TEACHER 06/24/2024 9:46 AM GOVERNMENT TEACHER Tuan Waite Jr., MD LAB BLOOD ORDERABLES Final Result Performing Organization Address [facility] de Phone Number [address] [place] [address] * T4, free (06/24/2024 7:13 AM GOVERNMENT TEACHER) Free T4 1.32 0.90 - 1.70 ng/dL Comment:Testing performed by : [address] [address] Blood 06/24/2024 7:13 AM GOVERNMENT TEACHER 06/24/2024 9:46 AM GOVERNMENT TEACHER Narrative [facility] - 06/24/2024 10:33 AM GOVERNMENT TEACHER This test was reflexed from a TSH result. Tuan Waite Jr., MD LAB BLOOD ORDERABLES Final Result Performing Organization Address [facility] Co de Phone Number [address] [place] [address] * Screening Mammogram Bilateral W Abram (03/06/2023 8:08 AM GOVERNMENT TEACHER) Anatomical Region Laterality Modality Breast Bilateral Mammography Impressions 03/28/2023 7:53 AM GOVERNMENT TEACHER BI-RADS ATLAS category (overall): 1 - Negative There is no mammographic evidence of malignancy. A 1 year screening mammogram is recommended. The patient has been or will be contacted. We recommend annual screening mammography for women at average risk of breast cancer beginning at age 40, based on guidelines of the [employer] (ACR Practice Parameter for the Performance of Screening and Diagnostic Mammography) and [employer]. For women with and elevated risk of breast cancer, please refer to the ACR Practice Parameter for specific screening recommendations. The patient will be entered into a reminder system with a target due date of 1 year for her next screening exam. Narrative 03/28/2023 7:53 AM GOVERNMENT TEACHER Screening Mammogram Bilateral W Abram: 03/06/23 The study was acquired using full field digital technology and interpreted from soft copy. 2D digital mammographic views, as well as 3D digital tomosynthesis were performed in the CC and MLO projections. CLINICAL: Preventative health care. No relevant medical history has been documented for this patient. No known family history of breast cancer. No comparisons were made when reading this study. BREAST TISSUE: The breasts are almost entirely fatty. FINDINGS: No suspicious masses, suspicious calcifications, or other suspicious findings are seen within either breast. Tuan Waite Jr., MD [facility] MAMMO PROCEDURES Final Result * Hepatitis C antibody (02/20/2021 1:37 PM CDT) Hep C Ab Nonreactive Nonreactive [facility]NA Comment: Interpretive Data Nonreactive: Antibodies to HCV not detected. Does NOT exclude the possibility of recent exposure to HCV. Equivocal: Equivocal for HCV antibodies. Supplemental molecular testing will be automatically performed to determine infection status in accordance with current CDC screening recommendations. Reactive: Positive for HCV antibodies. This may represent current or past HCV infection. Supplemental molecular testing will be automatically performed to determine current infection status in accordance with current CDC screening recommendations. Interpretive data was last revised on 2019. Blood 02/20/2021 1:37 PM CDT 02/20/2021 6:33 PM CDT Tuan Waite Jr., MD LAB MICROBIOLOGY - NERAL ORDERABLES Final Result Performing Organization Address City/State/[facility] Co ar Phone Number CERNER MH [address] [facility] Department [place] [address] from Last 3 Months or Most Recently Relevant to Health Maintenance Insurance [facility] CHOICE PLUS [facility] Advance Directives For more information, please contact: [phone] * Full Code (Latest Code Status on File) Date Activated Date Inactivated Comments 05/18/2021 8:33 AM 05/21/2021 4:32 PM * Full Code Date Activated Date Inactivated Comments 05/11/2021 10:27 PM 05/15/2021 3:47 PM * Full Code Date Activated Date Inactivated Comments 03/02/2018 4:54 PM 03/03/2018 4:46 PM * Full Code Date Activated Date Inactivated Comments 02/19/2018 2:30 PM 02/23/2018 1:46 PM Care Teams Hospital Unit Coordinator Relationship Specialty Start Date End Date Tuan Waite Jr., MD [address] [place] [id number] PCP - General Internal Medicine 02/16/21 Jamey Campbell MD Referring Physician Surgery 12/31/17
--- OUTSIDE RECORDS SUMMARY | 2024-09-24 09:13 | XMS_ITS | Clinical Summary ---
Author Organization [place] [id number] [facility] Address [address] [place] [address] Care Team Providers Care Operation Supervisor Name Role Phone Jamey Campbell MD Unavailable Mariann Melara MD, Tuan Martel Primary Care Provide r Allergies Active Allergy Reactions Criticality Noted Date [...] (BMI) of 35.0 to 35.9 in adult ([facility]) Inject 0.5 mL (10 mg total) under [...] times a day 180 tablet 3 024 2024 Discontinued(T herapy completed) TIRZEPATIDE SUBQ Inject under [...] 02/19/2022 Assessment & Plan (03/04/2024 10:57 AM SHOW HORSE DRIVER): Reviewed labs, screenings and vaccines Assessment & Plan (03/06/2023 7:21 AM SHOW HORSE DRIVER): Reviewed labs, screenings and vaccines Assessment & Plan (02/19/2022 4:27 PM CDT): neds updated labs S/P exploratory laparotomy 05/17/2021 Primary insomnia 02/16/2021 Assessment & Plan (03/06/2023 7:22 AM SHOW HORSE DRIVER): Chronic stable Well controlled Continue current prescribed [...] dose Assessment & Plan (03/06/2023 7:22 AM SHOW HORSE DRIVER): Chronic stable Well controlled Continue current prescribed [...] 02/16/2021 Assessment & Plan (03/06/2023 7:22 AM SHOW HORSE DRIVER): Chronic stable Well controlled Continue current prescribed medications at current dose Assessment & Plan (02/16/2021 4:45 PM CDT): Took lexarpo, stopped Other constipation 02/16/2021 Assessment & Plan (03/06/2023 7:22 AM SHOW HORSE DRIVER): Chronic stable Well controlled Continue current prescribed medications at current dose Assessment & Plan (02/16/2021 4:45 PM CDT): Take trulance Primary hypertension 02/16/2021 Assessment & Plan (09/02/2024 8:46 AM CDT): Chronic stable Well controlled Continue current prescribed medications at current dose Assessment & Plan (03/04/2024 10:58 AM SHOW HORSE DRIVER): Chronic stable Well controlled Continue current prescribed medications at current dose Assessment & Plan (03/06/2023 7:22 AM SHOW HORSE DRIVER): Chronic stable Well controlled Continue current prescribed [...] dose Has been sick since returning form [place] about 3 weeks prior, comes and goes Took zofran after Class 1 obesity due to exces s calories with serious comorbidity and body mass index (BMI) of 30.0 to 30.9 in adult 02/16/2021 03/04/2024 Assessment & Plan (10/08/2023 1:09 PM CDT): Will reach out to about weight loss savings program Assessment & Plan (03/06/2023 7:14 AM SHOW HORSE DRIVER): With HTN Will look into weight loss clinic options Assessment & Plan (02/19/2022 4:27 PM CDT): Wants to try one more month with adipex If this does not work we will consider getting wegovy from third republican supplier Assessment & Plan (02/16/2021 4:45 PM CDT): Taking adipex, discussed this, has goal of 150ls, 16 lbs away from this goal Ventral incisional hernia 11/18/2018 Assessment & Plan (02/16/2021 4:56 PM CDT): Monitor Will consider elective procedure in the future Large bowel anastomotic leak 01/17/2018 03/06/2023 Assessment & Plan (03/20/2021 3:35 PM SHOW HORSE DRIVER): History of this with needing surgery for repair High risk for SBO Recommend STAT CT for further evaluation Acute postoperative pain Generalized abdominal pain 1 05/06/2022 Encounters Date Type Department Care Team Description 09/04/2024 Telephone [facility] [address] [place] [phone] Tuan Waite Jr., MD Test Results 09/03/2024 Orders Only [facility] [address] [place] [phone] Tuan Waite Jr., MD Primary osteoarthritis involving multiple joints (Primary Dx) 09/02/2024 9:00 AM CDT Lab [facility] [address] [place] [address] Controlled drug dependence (HCC) 09/02/2024 8:45 AM CDT - 09/02/2024 11:59 PM CDT Hospital Encounter [facility] 1 DIAG IMG [address] [place] [address] Strain of tendon of lower back Discharge Disposition: Discharge to home or self care 09/02/2024 8:00 AM CDT Office Visit [facility] [address] [place] [address] [place] [phone] Tuan Waite Jr., MD Primary hypertension (Primary Dx); Other specified hypothyroidism; Strain of tendon of lower back; Class 2 severe obesity due to excess calories with serious comorbidity and body mass index (BMI) of 35.0 to 35.9 in adult (HCC); Controlled drug dependence (HCC) 08/10/2024 Orders Only [facility] G[facility]ology at [address] [place] [phone] Luis Armando Mccoy MD Screening for colon cancer (Primary Dx) 07/01/2024 Telephone [facility] [address] [place] [phone] Tuan Waite Jr., MD Symptom Based Call 06/24/2024 7:10 AM SHOW HORSE DRIVER Lab [facility] [address] [place] [address] Other specified hypothyroidism from Last 3 Months Immunizations Immunization Administration Dates Next Due Influenza, Quadrivalent, Spl it, Preservative Free, Intramuscular 02/20/2018,01/20/2014 Influenza, Trivalent, IM (MDV) 01/21/2014,2011 Influenza, Trivalent, Preser vative Free, Intramuscular 03/27/2013 Influenza, Unspecified 03/04/2024(Deferr ed: Patient Refused),03/04/2024(Deferred: Patient Refused),03/06/2023(Deferred: Patient Refused),02/20/2023(Deferred: Patient Refused),02/20/2022(Deferred: Patient Refused),04/10/2016,03/27/2016 Pneumococcal Conjugate, Unspecified 01/20/2013 Pneumococcal Polysaccharide PPV23 01/31/2012 Tdap 03/31/2013 ZOSTER LIVE 04/10/2016,03/27/2016 Surgical History Surgery Date Site/Laterality Comments HYSTERECTOMY 04/22/2004 - 04/21/2005 CHOLECYSTECTOMY 04/22/2003 - 04/21/2004 SECTION 1979,1981,1986 x 3 COLON SURGERY 09/20/2017 - 10/19/2017 fistula KIDNEY STONE SURGERY n/a COLON SURGERY 02/20/2018 - 03/21/2018 revision of fistula HERNIA REPAIR MENISCUS SURGERY 02/07/2023 Right Medical History Medical History Date Comments Arthritis Thyroid disease Stroke (HCC) Diverticula of colon Sleep apnea Skin cancer Family History Medical History Relation Name Comments Heart disease Father Lung disease Father No Known Problems Mother Anesthesia problems Neg Hx Relation Name Status Comments Father Mother Alive Social History Tobacco Use Types Packs/Day Years [...] on file Legal Sex Female 3:28 AM SHOW HORSE DRIVER Gender Identity Female 03/23/2021 5:45 PM SHOW HORSE DRIVER Sexual Orientation Not on file Obstetrics History Para Term AB IAB SAB Ectopic Multiple Livin g Live Births 3 3 3 Date Outcome GA Total Labor Labor/2nd/3rd Weight Sex Type Anes PTL Berta A1 A5 Name Clin Term Term Term Last Filed Vital Signs Vital Sign Reading Time Taken Comments Blood Pressure 114/64 09/02/2024 7:55 AM CDT Pulse 70 09/02/2024 7:55 AM CDT Temperature 36.4 C (97.6 F) 09/02/2024 7:55 AM CDT Respiratory Rate 18 03/04/2024 9:42 AM SHOW HORSE DRIVER Oxygen Saturation 98% 09/02/2024 7:55 AM CDT Inhaled Oxygen Concentration - - Weight 73 kg (161 lb) 09/02/2024 7:55 AM CDT Height 162.6 cm (5' 4) 09/02/2024 7:55 AM CDT Body Mass Index 27.64 09/02/2024 7:55 AM CDT Plan of Treatment Health Maintenance Due Date Last Done Comments Colon Cancer Screening-Colonoscopy 1960 Hepatitis B Screening 01/29/1978 Zoster Vaccine (2 of 3) 06/05/2016 04/10/2016, 03/27 DTaP/Tdap/Td Vaccine (2 - Td or Tdap) 03/31/2023 03/31/2013 Covid-19 Vaccine (4 - season) 2023 04/17/2021, 06/10/2020, 05/20/2020 Breast Cancer Screening-Mammogram 03/06/2024 03/06/2023 Influenza Vaccine (Season Ended) 2024 02/20/2018, 04/10/2016, 03/27/2016, Additional history exists Depression Screening 03/04/2025 03/04/2024, 10/08/2023, 03/06/2023, Additional history exists Regular Well Visit/Exam 18-64 03/04/2025 03/04/2024, 03/06/2023, 02/19/2022 Pneumococcal vaccine <65 Aged Out 01/20/2013, 01/20 No longer eligible based on patient's age to complete this topic Hepatitis C Screening Completed 02/20/2021 Medical Devices Implanted Type Area Executive Housekeeper Device Identifier Shelf Expiration Date Model / Serial / Lot [employer]/C R Bard [id number] Monofilament Soft Lightweight Low Profile Square - [id number] Implanted:Qty: 1 on 05/11/2021 by Disha Gay MD at [facility] Mesh N/A: Abdomen [employer]/C R Bard [id number] 12/17/2025 [id number] / / [id number] Procedures Procedure Name Priority Date/Time Associated Diagnosis [...] back T4, FREE Routine 06/24/2024 7:13 AM SHOW HORSE DRIVER Other specified hypothyroidism THYROID FUNCTION CASCADE Routine 06/24/2024 7:13 AM SHOW HORSE DRIVER Other specified hypothyroidism SCREENING MAMMOGRAM BILATERAL W ABRAM Schedule Routine, Read Routine (OP Routine) 03/06/2023 8:08 AM SHOW HORSE DRIVER Preventative health care HEPATITIS C ANTIBODY Routine [...] was last reviewed 2022. Testing performed by: [address] [address] Barbiturates, ur Not Detected CutOff 200ng/mL SANNA Comment: Interpretive Data - Barbiturates: Samples containing greater than 200 ng/mL secobarbital or other cross-reacting barbiturate compounds are reported as positive. False positive and false negative results are possible. Confirmatory testing required for definitive results. Current Interpretive Data was last reviewed 2022. Testing performed by: [address] [address] Benzodiazepines, ur Not Detected CutOff 100ng/mL [facility]NA Comment: Interpretive Data - Benzodiazepines: Samples containing greater than 100 ng/mL nordiazepam or other cross-reacting compounds are reported as positive. False positive and false negative results are possible. Confirmatory testing required for definitive results. Current Interpretive Data was last reviewed 2022. Testing performed by: [facility], [address] [place] [address]., [address] Cannabinoids, ur Not Detected CutOff 50 ng/mL [facility] Comment: Interpretive Data - Cannabinoids: Samples containing greater than 50 ng/mL delta-9 THC -COOH or other cross- reacting compounds are reported as positive. False positive and false negative results are possible. Confirmatory testing required for definitive results. Current Interpretive Data was last reviewed 2022. Testing performed by: [facility], [address] [place] [address], [place]., [address] Cocaine, ur Not Detected CutOff 150ng/mL [facility] Comment: Interpretive Data - Cocaine: Samples containing greater than 150 ng/mL benzoylecgonine or other cross- reacting compounds are reported as positive. False positive and false negative results are possible. Confirmatory testing required for definitive results. Current Interpretive Data was last reviewed 2022. Testing performed by: [address], [place]., [address] Fentanyl, Ur Not Detected Cutoff 1 ng/mL [facility] Comment: Interpretive Data - Fentanyl: Samples containing greater than 1 ng/mL fentanyl or other cross-reacting fentanyl compounds are reported as positive. False positive and false negative results are possible. Confirmatory testing required for definitive results. Current Interpretive Data was last reviewed 2022. Testing performed by: [address] [address] Methadone, ur Not Detected CutOff 300ng/mL [facility] Comment: Interpretive Data - Methadone: Samples containing greater than 300 ng/mL d,l-methadone or other cross-reacting compounds are reported as positive. False positive and false negative results are possible. Confirmatory testing required for definitive results. Current Interpretive Data was last reviewed 2022. Testing performed by: [address], [place]., [address] Opiates, ur Screen Positive, presumptive (A) CutOff 300ng/mL [facility] Comment: Interpretive Data - Opiates: Samples containing greater than 300 ng/mL morphine or other cross-reacting compounds are reported as positive. False positive and false negative results are possible. Confirmatory testing required for definitive results. Current Interpretive Data was last reviewed 2022. Testing performed by: [address] [address] Oxycodone, ur Not Detected CutOff 100ng/mL [facility] Comment: Interpretive Data - Oxycodone: Samples containing greater than 100 ng/mL oxycodone or other cross-reacting compounds are reported as positive. False positive and false negative results are possible. Confirmatory testing required for definitive results. Current Interpretive Data was last reviewed 2022. Testing performed by: [address] [address] Phencyclidine, ur Not Detected CutOff 25 ng/mL [facility] Comment: Interpretive Data - Phencyclidine: Samples containing greater than 25 ng/mL phencyclidine or other cross-reacting compounds are reported as positive. False positive and false negative results are possible. Confirmatory testing required for definitive results. Current Interpretive Data was last reviewed 2022. Testing performed by: [address] [address] Urine Creatinine 188 mg/dL [facility] Comment: Interpretive Data Urine Creatinine: < 10 mg/dL is extremely dilute = or > 10 but < 20 mg/dL is dilute = or > 20 mg/dL is normal Current Interpretive Data was last revised on 2017. Testing performed by: [address] [address] Urine 09/02/2024 9:09 AM CDT 09/02/2024 10:44 AM CDT Narrative [facility]NA - 09/02/2024 11:28 AM CDT Drug of Abuse screening is performed by immunoassay for medical purposes only. This is not to be used for Pain Management purposes. If Detected, confirmation testing will be performed for Amphetamines, Cocaine, Fentanyl, Methadone, Opiates, Oxycodone or Phencyclidine. us Tuan Waite Jr., MD LAB URINE ORDERABLES Final Result [facility] [address] [facility] Department of Laboratories [place], [place] [id number] * (ABNORMAL) Opiates Confirmation, Urine (09/02/2024 9:09 AM CDT) Codeine Conf, Ur Does Not Confirm CutOff 50 ng/mL Comment:Testing performed by : [facility], [address] [place]., [address] 6- Acetylmorphine Conf, Ur Does Not Confirm CutOff 10 ng/mL SANNA Comment:Testing performed by : [facility], [address] [place]., [address] Hydrocodone Conf, Ur Confirmed Positive(A) CutOff 50 ng/mL [facility]NA Comment:Testing performed by : [facility], [address] [place]., [address] Morphine Conf, Ur Does Not Confirm CutOff 50 ng/mL SANNA Comment:Testing performed by : [facility], [address] [place]., [address] Hydromorphone Conf, Ur Does Not Confirm CutOff [...] needed. Performance characteristics were determined by the [facility] in a manner consistent with CLIA requirement and has not been cleared or approved by the U.S. Food and Drug Administration. Current interpretive data was last revised 2020. Testing performed by: [facility], [address] [place]., [address] Urine 09/02/2024 9:09 AM CDT 09/02/2024 3:31 PM CDT Tuan Waite Jr., MD LAB URINE ORDERABLES Final Result [facility] [address] [facility] [place] [address] * XR Spine Lumbar Complete 4 Or [...] Tuan Rodrigez M.D. MF: ROSALBA Report ID: [id number] Reading Location: [id number] Procedure Note Tuan Rodrigez MD - 09/07/2024 [...] Tuan Rodrigez M.D. MF: ROSALBA Report ID: [id number] Reading Location: [place] [address] us Tuan Waite Jr., MD IMG XR PROCEDURES Fin al Result * (ABNORMAL) Thyroid Function [place] (06/24/2024 7:13 AM SHOW HORSE DRIVER) TSH 4.64(H) 0.30 - 4.20 mcIUnit/mL Comment:Testing performed by : [facility], [address] [place] [address]., [address] Blood 06/24/2024 7:13 AM SHOW HORSE DRIVER 06/24/2024 9:46 AM SHOW HORSE DRIVER Tuan Waite Jr., MD LAB BLOOD ORDERABLES Final Result Performing Organization Address [facility] Co de Phone Number [address] [place] [address] * T4, free (06/24/2024 7:13 AM SHOW HORSE DRIVER) Free T4 1.32 0.90 - 1.70 ng/dL Comment:Testing performed by : [address] [address] Blood 06/24/2024 7:13 AM SHOW HORSE DRIVER 06/24/2024 9:46 AM SHOW HORSE DRIVER Narrative CERNER - 06/24/2024 10:33 AM SHOW HORSE DRIVER This test was reflexed from a TSH result. Tuan Waite Jr., MD LAB BLOOD ORDERABLES Final Result Performing Organization Address [facility] Co de Phone Number [address] [place] [address] * Screening Mammogram Bilateral W Abram (03/06/2023 8:08 AM SHOW HORSE DRIVER) Anatomical Region Laterality Modality Breast Bilateral Mammography Impressions 03/28/2023 7:53 AM SHOW HORSE DRIVER BI-RADS ATLAS category (overall): 1 - Negative There is no mammographic evidence of malignancy. A 1 year screening mammogram is recommended. The patient has been or will be contacted. We recommend annual screening mammography for women at average risk of breast cancer beginning at age 40, based on guidelines of the [place] [employer] (ACR Practice Parameter for the Performance of Screening and Diagnostic Mammography) and [employer] [employer]. For women with and elevated risk of breast cancer, please refer to the ACR Practice Parameter for specific screening recommendations. The patient will be entered into a reminder system with a target due date of 1 year for her next screening exam. Narrative 03/28/2023 7:53 AM SHOW HORSE DRIVER Screening Mammogram Bilateral W Abram: 03/06/23 The [...] suspicious findings are seen within either breast. us Tuan Waite Jr., MD IMG MAMMO PROCEDURES Final Result * Hepatitis C [...] 1:37 PM CDT 02/20/2021 6:33 PM CDT us Tuan Waite Jr., MD LAB MICROBIOLOGY - [facility] ORDERABLES Final Result CERNER [address] [facility] [place] [address] from Last 3 Months or Most Recently Relevant to Health Maintenance Insurance [facility] CHOICE PLUS [facility] Advance Directives For more information, please contact: [phone] * Full Code (Latest Code Status on File) Date Activated Date Inactivated Comments 05/18/2021 8:33 AM 05/21/2021 4:32 PM * Full Code Date Activated Date Inactivated Comments 05/11/2021 10:27 PM 05/15/2021 3:47 PM * Full Code Date Activated Date Inactivated Comments 03/02/2018 4:54 PM 03/03/2018 4:46 PM * Full Code Date Activated Date Inactivated Comments 02/19/2018 2:30 PM 02/23/2018 1:46 PM Care Teams Operation Supervisor Relationship Specialty Start Date End Date Tuan Waite Jr., MD [address] [place] [address] PCP - General Internal Medicine 02/16/21 Jamey Campbell MD Referring Physician Surgery 12/31/17
--- OUTSIDE RECORDS SUMMARY | 2024-09-24 09:13 | XMS_ITS | Encounter Summary ---
Author Organization [facility] Healthcare Address [address] [place] [address] Care Team Providers Care Export Sales Manager Name Role Phone Jamey Campbell MD Unavailable [phone] Mariann Melara MD, Tuan Martel Primary Care Provide r Reason for Visit * Reason Onset Date Comments Test Results 09/04/2024 Encounter Details Date Type Department Care Team ([facility] st Contact Info) Description 09/04/2024 Telephone [facility] Primary Care [address] [phone] Tuan Waite Jr., MD [address] [place] [address] Test Results Social History Tobacco Use Types Packs/Day Years Used Date Smoking Tobacco: Never Smokeless Tobacco: Never Alcohol Use Standard Drinks/Week Comments No 0 [...] on file Legal Sex Female 3:28 AM STOCK REPLENISHER Gender Identity Female 03/23/2021 5:45 PM STOCK REPLENISHER Sexual Orientation Not on file documented as of this encounter Miscellaneous Notes * Telephone Encounter - ÁngelHernan mcintosha - 09/04/2024 3:58 PM CDT Test Result Request Type of test: XR Spine Lumbar Date of test: 09/02/2024 Where was the test performed at?[facility] Did provider dictate result yet? No Additional Questions/Comments: Patient is asking for results of her XRay and would like to hear back as soon as possible as she is having pain with PT AC sending as high priority Does message need to be routed? Yes-Action Needed documented in this encounter Plan of Treatment Not on file documented as of this encounter Visit Diagnoses Not on filedocumented in this encounter Care Teams Export Sales Manager Relationship Specialty Start Date End Date Tuan Waite Jr., MD [address] [place] [address] PCP - General Internal Medicine 02/16/21 Jamey Campbell MD Referring Physician Surgery 12/31/17 documented as of this encounter
--- OUTSIDE RECORDS SUMMARY | 2024-09-24 10:02 | XMS_ITS | Clinical Summary ---
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 Active zolpidem (AMBIEN) 10 mg tablet Take [...] Comments Blood Pressure 128/78 02/24/2014 2:42 PM PATIENT FINANCIAL REPRESENTATIVE Pulse 62 02/24/2014 2:42 PM PATIENT FINANCIAL REPRESENTATIVE Temperature 36.7 C (98 F) 01/22/2014 5:13 AM CDT Respiratory Rate 16 01/22/2014 5:13 AM CDT Oxygen Saturation 98% 02/24/2014 2:42 PM PATIENT FINANCIAL REPRESENTATIVE Inhaled Oxygen Concentration - - Weight 78.9 kg (174 lb) 02/24/2014 2:42 PM PATIENT FINANCIAL REPRESENTATIVE Height 165.1 cm (5' 5) 02/24/2014 2:42 PM PATIENT FINANCIAL REPRESENTATIVE Body Mass Index 28.96 02/24/2014 2:42 PM PATIENT FINANCIAL REPRESENTATIVE Plan of Treatment Health Maintenance Due Date [...] (1 - 1-dose 75+ series) 01/29/2035 Insurance [facility] BLUE ACCESS CHOICE Advance Directives For more information, please contact: [phone] * Full Code (Latest Code Status on File) Date Activated Date Inactivated Comments 01/20/2014 2:05 PM 01/22/2014 2:20 PM * Full Code Date Activated Date Inactivated Comments 01/20/2014 9:24 AM 01/20/2014 2:05 PM Care Teams Solar Development Engineer Relationship Specialty Start Date End Date Ashley Morrison MD [address] [facility] [address] [place] [address] PCP - General 04/08/15
--- OUTSIDE RECORDS SUMMARY | 2024-09-24 10:02 | XMS_ITS | Encounter Summary ---
Author Organization [facility] Address [address] [place] [address] Care Team Providers Care Drywall Hanger Name Role Phone Ashley Morrison MD Primary Care Provider [phone] Reason for Visit * Reason Onset Date Comments New Patient Request 03/18/2023 Encounter Details Date Type Department Care Team (Late st Contact Info) Description 03/18/2023 Telephone [facility] Primary Care - [facility], [address] [facility] [address] Isaiah Nevarez MD [address] [facility] [address] [id number] New Patient Request Social History Tobacco Use [...] Patient Appointments for both her and her RVISOR DECORATING * Telephone Encounter - Isaiah Nevarez MD - 03/19/2023 2:42 PM CST Yes I will see her, routine next available 11 AM on a Saturday/Saturday/ RVISOR DECORATING * Telephone Encounter - Agnieszka Morley - [...] Please call back and advise. Call-back Number: [phone] (home) RVISOR DECORATING documented in this encounter Plan of Treatment Not on file documented as of this encounter Visit Diagnoses Not on filedocumented in this encounter Care Teams Drywall Hanger Relationship Specialty Start Date End Date Ashley Morrison MD [address] [address] PCP - General 04/08/15 documented as of this encounter
--- OUTSIDE RECORDS SUMMARY | 2024-09-24 10:02 | XMS_ITS | CONTINUITY OF CARE DOCUMENT ---
Author Name dain gautam Address Unknown Organization [facility] Office Address [address] [place] [address] Phone [phone] Care Team Providers Care Senior Hadoop Developer Name Role Phone Lj GALVAN, Jun Unavailable [phone] ADELAIDE LOONEY MD Unavailable [phone] ADELAIDE LOONEY MD Unavailable PROBLEMS Condition Status [...] In-person encounter Office Visit Jun Calhoun MD [facility] Family History of CVA or Stroke:Family History [...] [lb_av] Josefa Dick height E&M 64 [in_i] Josfea Jennings ALLERGIES Allergy Name Onset Date Reaction [...] Payer name Policy type / Coverage type [place] red republican ID [facility] [id number] ADVANCE DIRECTIVES Name Date DISCUSSED - NO [...] Calhoun MD complet ed Stress EKG Adam Lagos MD complete d EKG Jun Calhoun MD completed
--- NOTE | 2024-09-24 10:08 | ED.HEATRA ---
HPI - Head Injury General Chief complaint: Head Injury Stated complaint: head injury Time Seen by Provider: 09/24/24 09:07 History of Present Illness HPI Narrative: Patient is a 64-year-old female who presents to the ER after hitting her head. She reports she was letting her dogs out this morning when she tripped over 1 of the dogs, fell backward and hit the back of her head on concrete. Patient reports she noticed some bleeding from her head. She also hit her right elbow and right knee on concrete. Pt endorses tingling pain to her face, intermittent nausea and mild photophobia. She denies any neck pain, back pain, vomiting, or numbness/tingling in her extremities. Patient denies any pertinent medical history relevant to this ER visit. She is unsure when she last received her tetanus vaccine. Related Data Allergies Allergy/AdvReac Type Severity Reaction Status Date / Time Penicillins Allergy Mild Rash Unverified 09/24/24 09:01 Review of Systems Review of Systems: All systems reviewed & are unremarkable except as noted in HPI and below Exam Narrative: GENERAL: Well appearing, well-nourished, non-toxic, in no acute distress. HEAD: Normocephalic, 1/2 inch linear laceration to occipital area, bleeding control NECK: Supple. No adenopathy, no masses. RESPIRATORY: Airway patent, respirations nonlabored. Clear to auscultation bilaterally, no rales, rhonchi, wheezing. CARDIOVASCULAR: Regular rate and rhythm without murmurs, rubs, or gallops. Peripheral pulses 2+ and equal bilaterally. ABDOMINAL: Soft, nontender, nondistended, no hepatosplenomegaly. Normoactive BS. MUSCULOSKELETAL: Moves all extremities. Strength/ROM intact without gross deformities. SKIN: Warm, dry, normal color. No rashes. NEURO: A&O X3. Speech clear. Cranial nerves II-XII intact. No ataxic movements. PSYCHIATRIC: Appropriate mood and affect. Normal interaction. Course Vital Signs Vital signs: Vital Signs Temperature 36.4 C 09/24/24 08:59 Pulse Rate 65 09/24/24 08:59 Respiratory Rate 14 09/24/24 08:59 Blood Pressure 140/68 09/24/24 08:59 Pulse Oximetry 100 09/24/24 08:59 Temperature 36.4 C 09/24/24 08:59 Pulse Rate 65 06/05/25 08:59 Respiratory Rate 14 09/24/24 08:59 Blood Pressure 140/68 09/24/24 08:59 Pulse Oximetry 100 09/24/24 08:59 Procedures Laceration Laceration 1: Date: 09/24/24 Time: 11:31 Site: scalp Size (cm): 2 Description: linear Depth: simple, single layer Local Anesthetic: other anesthetic and none (EMLA cream) Amount of anesthesia used (mL): 1 Pre-repair: irrigated extensively ====== Skin Level ====== Skin layer closed with: marleen Number of sutures: 4 ====== Subcutaneous Layer ====== ====== Muscle Layer ====== ====== Tendon Layer ====== MDM - Head Injury MDM Narrative Medical decision making narrative: Patient is a 64-year-old female who presents to the ER after hitting her head. She reports she was letting her dogs out this morning when she tripped over 1 of the dogs, fell backward and hit the back of her head on concrete. Patient reports she noticed some bleeding from her head. She also hit her right elbow and right knee on concrete. Pt endorses tingling pain to her face, intermittent nausea and mild photophobia. She denies any neck pain, back pain, vomiting, or numbness/tingling in her extremities. Patient denies any pertinent medical history relevant to this ER visit. She is unsure when she last received her tetanus vaccine. Labs Ordered: None necessary Imaging Ordered: CT cervical spine, CT head Medications Ordered: Tdap IM, EMLA cream Results: Pt's CT scan indicates 1. No acute intracranial abnormality. 1. No acute abnormality of the cervical spine. 2: Severe cervical spondylosis. Diagnosis: occipital scalp laceration, concussion without loss of consciousness Patient Education/Shared MDM: Results of imaging shared with patient. She endorses an ongoing headache so patient will be given a dose of Toradol IM prior to discharge. Patient's wound was irrigated with normal saline, EMLA cream was placed on the edges, and four marleen were placed to close the laceration. She may use Tylenol and ibuprofen for pain control as an outpatient. Patient strongly advised to follow-up with her PCP in 7-10 days for staple removal. She will be discharged home with a prescription for Zofran. Strict return precautions provided. Patient verbalized understanding and is in agreement with plan. Vital signs stable at time of discharge. All questions answered. Differential Diagnosis Differential diagnosis: Likely concussion without loss of consciousness, subarachnoid hematoma, postconcussion syndrome and subdural hematoma Imaging Data Attestation: I personally reviewed and interpreted this imaging study as follows: Radiologist's impression: Impressions Head CT 09/24/24 09:20 IMPRESSION: 1. No acute intracranial abnormality. Cervical Spine CT 09/24/24 09:22 IMPRESSION: 1. No acute abnormality of the cervical spine. 2: Severe cervical spondylosis. Discharge Plan Discharge Clinical Impression: Concussion without loss of consciousness, Laceration of occipital region of scalp, Stapled skin wound, Closed head injury Patient Disposition: Home Condition: Stable Instructions: Antibiotic Form, Concussion (ED), Staple Care (ED) Additional Instructions: Please return to the ER with any worsening symptoms. Follow-up with primary care provider in 7-10 days for staple removal. Take all medications as prescribed, including regularly scheduled medications. You may use ibuprofen at home for pain control. Patient Language: Citizen [place] Prescriptions: New ondansetron 4 mg tablet,disintegrating 4 mg PO Q6H PRN (Reason: nausea and vomiting) Qty: 20 0RF Follow-up/Referrals: Pavan,MD Scott [Primary Care Provider] - Stand Alone Forms: Work/School Release IP Time of Disposition: 11:38
[2024-09-24] MEDS: LIDOCAINE/PRILOCAINE CREAM 2.5-2.5% TUBE 1 EACH TOPICAL (10:32)
[2024-09-24 11:10] VITALS: BP 139/82; PULSE 69; RESP 16; TEMP 36.7; O2SAT 97
--- NOTE | 2024-09-24 11:14 | PC.NURSE ---
assumed care of pt from PATTIE Simmons. pt resting on stretcher, no distress noted. informed we are waiting for provider to staple the wound. pt verbalized understanding of d/c instructions
--- NOTE | 2024-09-24 11:17 | PC.NURSE ---
assumed care of pt from PATTIE Simmons. pt resting on stretcher, no distress noted. informed we are waiting for provider to staple the wound. pt verbalized understanding of plan
[2024-09-24] MEDS: KETOROLAC (*BKC) 60 MG/2 ML VIAL IM (11:36)
[2024-09-24 12:00] VITALS: BP 142/83; PULSE 67; RESP 18; TEMP 36.6; O2SAT 97
== END 2024-09-24 12:01 | disposition home or self-care (01) ==
PROVIDERS: Emergency Provider Registered Nurse; PCP Family Medicine
DX: S06.0X0A Concussion without loss of consciousness, initial encounter (principal); S01.01XA Laceration without foreign body of scalp, initial encounter; W18.31XA Fall on same level due to stepping on an object, initial encounter; Z23 Encounter for immunization
CPT/HCPCS: 12001; 70450; 72125; 90471; 90715; 96372; 99284; J1885